=== PATIENT | female | born 1975 | race Caucasian/White ===

== ENCOUNTER 2016-05-29 11:35 | Emergency (ER) | payer OTHER ==
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
[2016-05-29] MEDS ORDERED: ACETAMINOPHEN 325 MG TABLET PO ONE (12:07)
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
[2016-05-29] MEDS ORDERED: CYCLOBENZAPRINE HCL 10 MG TABLET PO ONE (13:42)
[2016-05-29 14:11] VITALS: BP 108/65
== END 2016-05-29 14:10 | disposition home or self-care (01) ==
LOC: ER 11:35
DX: S16.1XXA Strain of muscle, fascia and tendon at neck level, initial encounter (principal); M50.30 Other cervical disc degeneration, unspecified cervical region; M62.838 Other muscle spasm; M25.511 Pain in right shoulder; F17.200 Nicotine dependence, unspecified, uncomplicated; V49.50XA Passenger injured in collision with unspecified motor vehicles in traffic accident, initial encounter; E11.9 Type 2 diabetes mellitus without complications; Z90.49 Acquired absence of other specified parts of digestive tract
CPT/HCPCS: 72050; 99283

== ENCOUNTER 2016-06-03 10:12 | Emergency (ER) | payer OTHER ==
[2016-06-03 10:16] VITALS: BP 98/79
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
== END 2016-06-03 11:41 | disposition home or self-care (01) ==
LOC: ER 10:12
DX: S46.811A Strain of other muscles, fascia and tendons at shoulder and upper arm level, right arm, initial encounter (principal); R22.0 Localized swelling, mass and lump, head; M25.511 Pain in right shoulder; M54.2 Cervicalgia; F17.200 Nicotine dependence, unspecified, uncomplicated; V87.7XXA Person injured in collision between other specified motor vehicles (traffic), initial encounter
CPT/HCPCS: 99283

== ENCOUNTER 2016-08-24 10:36 | Inpatient (IN) | payer OTHER ==
[2016-08-24] MEDS ORDERED: NORMAL SALINE 1000 ML 1,000 ML IV ONE ×2 (10:48→11:00)
[2016-08-24] MEDS ORDERED: ONDANSETRON HCL INJ/PF 4 MG/2 ML SDV IV ONE (11:05)
--- NOTE | 2016-08-24 11:05 | ER Document Report ---
ED Blood Sugar Problem - General Chief Complaint: General Weakness Stated Complaint: WEAKNESS Time Seen by Provider: 08/24/16 10:46 Mode of Arrival: Medic Information source: Patient Notes: A 41-year-old diabetic patient who presents to the ER via EMS today for generalized weakness. Since yesterday, vomiting at least 10 times since this morning. She has not had her insulin in 3 days because she buys it over-the- counter and ran out, did not have any money to buy more. She denies any fever, chills, diarrhea, pain anywhere TRAVEL OUTSIDE OF THE [place] IN LAST 30 DAYS: No - Related Data Allergies/Adverse Reactions: No Known Allergies Allergy (Verified 06/03/16 10:20) Past Medical History - General Information source: Patient - Social History Smoking Status: Current Every Day Smoker Family History: None, COPD, DM - Past Medical History Cardiac Medical History: Denies: Hx Atrial Fibrillation, Hx Congestive Heart Failure, Hx Coronary Artery Disease, Hx DVT, Hx Heart Attack, Hx Hypercholesterolemia, Hx Hypertension, Hx Peripheral Vascular Disease, Hx Pulmonary Embolism, Hx Heart Murmur Pulmonary Medical History: Denies: Hx Asthma, Hx Bronchitis, Hx COPD, Hx Pneumonia, Hx Intubation, Hx Respiratory Failure, Hx Sleep Apnea, Hx Tuberculosis Neurological Medical History: Denies: Hx Migraine, Hx Seizures Endocrine Medical History: Reports: Hx Diabetes Mellitus Type 1, Hx Diabetes Mellitus Type 2. Denies: Hx Hyperthyroidism, Hx Hypothyroidism Renal/ Medical History: Denies: Hx End Stage Renal Disease, Hx Peritoneal Dialysis Malignancy Medical History: Denies: Hx Bone Cancer, Hx Brain Cancer, Hx Breast Cancer, Hx Cervical Cancer, Hx Colorectal Cancer, Hx Leukemia, Hx Liver Cancer, Hx Lung Cancer, Hx Lymphoma, Hx Ovarian Cancer, Hx Pancreatic Cancer, Hx Renal ( Kidney) Cancer, Hx Skin Cancer GI Medical History: Denies: Hx Cirrhosis, Hx Crohn's Disease, Hx Diverticulitis , Hx Gastroesophageal Reflux Disease, Hx Hepatitis, Hx Hiatal Hernia, Hx Ulcerative Colitis Musculoskeltal Medical History: Denies Hx Arthritis, Denies Hx Fibromyalgia, Denies Hx Gout Skin Medical History: Denies Hx Eczema, Reports Hx MRSA, Denies Hx Psoriasis Psychiatric Medical History: Denies: Hx Depression Traumatic Medical History: Denies: Hx Gunshot Wound, Hx Pneumothorax, Hx Traumatic Brain Injury Infectious Medical History: Denies: Hx Hepatitis Past Surgical History: Reports: Hx Section, Hx Cholecystectomy - Immunizations Immunizations up to date: No Hx Diphtheria, Pertussis, Tetanus Vaccination: Yes Hx Pneumococcal Vaccination: 02/13/15 Review of Systems - Review of Systems Constitutional: See HPI EENT: No symptoms reported Cardiovascular: No symptoms reported Respiratory: No symptoms reported Gastrointestinal: See HPI Genitourinary: No symptoms reported Female Genitourinary: No symptoms reported Musculoskeletal: No symptoms reported Skin: No symptoms reported Hematologic/Lymphatic: No symptoms reported Neurological/Psychological: No symptoms reported Physical Exam - Vital signs Vitals: Resp Pulse Ox 27 H 100 08/24/16 10:53 08/24/16 10:53 - Notes Notes: PHYSICAL EXAMINATION: GENERAL: Actively vomiting, in moderate acute distress. HEAD: Atraumatic, normocephalic. EYES: Pupils equal round and reactive to light, extraocular movements intact, sclera anicteric, conjunctiva are normal. NECK: Normal range of motion, supple without lymphadenopathy LUNGS: CTAB and equal. No wheezes rales or rhonchi. HEART: Regular rate and rhythm without murmurs ABDOMEN: Soft, no tenderness. No guarding, no rebound EXTREMITIES: Normal range of motion, no pitting edema. No cyanosis. SKIN: Warm, Dry, normal turgor, no rashes or lesions noted Course - Re-evaluation Re-evalutation: 08/24/16 12:21 patient's white blood cell count is 26.5, bicarbonate less than 5, anion gap is not able to be calculated, osmolality is high, serum glucose of 644, patient is in DKA. Dr. Nj, hospitalist agreed to admit at this time. Patient has received multiple medications for nausea and vomiting but is still actively vomiting. Bicarb was ordered, IV fluids are running. pH is 7.1. - Vital Signs Vital signs: Temp Pulse Resp BP Pulse Ox 26 H 131/77 H 100 08/24/16 12:00 08/24/16 10:54 08/24/16 12:00 - Laboratory Result Diagrams: 08/24/16 11:25 08/24/16 11:25 Laboratory results interpreted by me: 08/24/16 08/24/16 08/24/16 11:25 11:25 11:25 WBC 26.5 H Hct 50.4 H MCHC 30.8 L Plt Count 519 H Seg Neuts % (Manual) 87 H Lymphocytes % (Manual) 5 L Abs Neuts (Manual) 23.9 H VBG pH VBG pCO2 VBG HCO3 Potassium 5.1 H Carbon Dioxide < 5 L* Glucose 644 H* Serum Osmolality 327 H Direct Bilirubin 0.5 H Alkaline Phosphatase 154 H Lipase 21.6 L Urine Glucose (UA) Urine Ketones 08/24/16 08/24/16 11:25 11:45 WBC Hct MCHC Plt Count Seg Neuts % (Manual) Lymphocytes % (Manual) Abs Neuts (Manual) VBG pH 7.11 L* VBG pCO2 23.0 L VBG HCO3 7.1 L Potassium Carbon Dioxide Glucose Serum Osmolality Direct Bilirubin Alkaline Phosphatase Lipase Urine Glucose (UA) >=500 H Urine Ketones 80 H Critical Care Note - Critical Care Note Total time excluding time spent on procedures (mins): 35 - 35 minutes spent in critical care time with patient, consulted with attending, speaking with family , placing orders and evaluating tests and labs. Discharge - Discharge Clinical Impression: DKA (diabetic ketoacidoses) Qualifiers: Diabetes mellitus type: other specified (including ARSEN) Diabetes mellitus complication detail: without coma Qualified Code(s): E13.10 - Other specified diabetes mellitus with ketoacidosis without coma Condition: Fair Disposition: ADMITTED INPATIENT Admitting Provider: Hospitalist Unit Admitted: [facility]
[2016-08-24] MEDS ORDERED: ONDANSETRON HCL INJ/PF 4 MG/2 ML SDV ONE (11:07)
[2016-08-24 11:34] LABS: HEMATOCRIT 50.4 % (36.0-47.0); HEMOGLOBIN 15.5 g/dL (12.0-15.5); HGB HCT DIFFERENCE -3.9; MEAN CORPUSCULAR HGB CONC 30.8 g/dL (32.0-36.0); MEAN CORPUSCULAR VOLUME 97 fl (80-97); RED BLOOD COUNT 5.18 10^6/uL (3.72-5.28); WHITE BLOOD COUNT 26.5 10^3/uL (4.0-10.5)
[2016-08-24 11:45] LABS: APPEARANCE,URINE SLIGHTLY-CLOUDY; BILIRUBIN,URINE NEGATIVE (NEGATIVE); GLUCOSE, URINE >=500 mg/dL (NEGATIVE); KETONES,URINE 80 mg/dL (NEGATIVE); LEUKOCYTE ESTERASE,URINE NEGATIVE (NEGATIVE); NITRITE,URINE NEGATIVE (NEGATIVE); PROTEIN,URINE NEGATIVE (NEGATIVE); URINE SPECIFIC GRAVITY 1.029; UROBILINOGEN,URINE NEGATIVE mg/dL (<2.0)
[2016-08-24] MEDS ORDERED: PROMETHAZINE HCL INJ 25 MG/1 ML VIAL IM ONE (11:45)
[2016-08-24 11:48] LABS: BAND NEUTROPHILS % (MANUAL) 3 % (3-5); BASOPHILS % (MANUAL) 0 % (0-2); EOSINOPHILS % (MANUAL) 0 % (0-6); LYMPHOCYTES % (MANUAL) 5 % (13-45); TOTAL CELLS COUNTED 100
[2016-08-24 11:49] LABS: ALANINE AMINOTRANSFERASE 37 U/L (9-52); ALBUMIN 4.6 g/dL (3.5-5.0); ALKALINE PHOSPHATASE 154 U/L (38-126); ASPARTATE AMINO TRANSFERASE 22 U/L (14-36); BILIRUBIN,DIRECT 0.5 mg/dL (0.0-0.4); BILIRUBIN,TOTAL 0.9 mg/dL (0.2-1.3); BLOOD UREA NITROGEN 14 mg/dL (7-20); CHLORIDE 99 mmol/L (98-107); CREATININE RESULT 0.79 mg/dL (0.52-1.25); LIPASE 21.6 U/L (23-300); SODIUM 138.7 mmol/L (137-145)
[2016-08-24 11:50] LABS: POTASSIUM 5.1 mmol/L (3.6-5.0)
[2016-08-24 11:58] LABS: GLUCOSE 644 mg/dL (75-110)
[2016-08-24 11:59] LABS: CARBON DIOXIDE < 5 mmol/L (22-30)
[2016-08-24] MEDS ORDERED: INSULIN REG, HUMAN 100 UNIT/ML 3 ML VIAL (PYX) IV ONE (12:04)
[2016-08-24 12:12] LABS: VENOUS BLOOD BASE EXCESS -20.6 mmol/L; VENOUS BLOOD HCO3 7.1 mmol/L (20-32)
[2016-08-24] MEDS ORDERED: SODIUM BICARBONATE 8.4% INJ 50 MEQ/50 ML DISP.SYRIN IV ONE ×3 (12:12→19:30)
[2016-08-24 12:14] LABS: VENOUS BLOOD PH 7.11 (7.30-7.42)
[2016-08-24] MEDS ORDERED: PROMETHAZINE HCL INJ 50 MG/1 ML VIAL IM ONE (12:15)
[2016-08-24] MEDS ORDERED: IPRATROPIUM/ALBUTEROL 0.5-2.5 MG/3 ML AMPUL NEB PRN (12:42)
[2016-08-24] MEDS ORDERED: ACETAMINOPHEN 650 MG SUPP.RECT PR PRN (12:42)
[2016-08-24] MEDS ORDERED: NORMAL SALINE 1000 ML 1,000 ML IV PRN (12:42)
[2016-08-24] MEDS ORDERED: DEXTROSE 50%-WATER 25 GM/50 ML DISP.SYRIN IV PRN ×2 (12:42)
[2016-08-24] MEDS ORDERED: DEXTROSE 40% GEL 15 GM TUBE PO PRN ×2 (12:42)
[2016-08-24] MEDS ORDERED: PROMETHAZINE HCL 25 MG SUPP.RECT PR PRN (12:42)
[2016-08-24] MEDS ORDERED: ONDANSETRON HCL INJ/PF 4 MG/2 ML SDV IV PRN (12:42)
[2016-08-24] MEDS ORDERED: GLUCAGON,HUMAN RECOMB 1 MG INJ SUBCUT PRN (12:42)
[2016-08-24] MEDS ORDERED: NORMAL SALINE 100 ML with INSULIN REGULAR, HUMAN 100 UNIT IV PRN ×2 (12:46)
--- NOTE | 2016-08-24 13:08 | PDOC H&P ---
History of Present Illness Admission Date/PCP: 08/24/16 12:39 No PCP History of Present Illness: CAMMIE ROBLES is a 41 year old female with a long history of IDDM who presented to the emergency department with nausea, vomiting, abdominal pain and was found to have DKA. Patient reports having no primary care physician and has been buying her insulin over the counter. She normally takes 30 units of 70/30 twice daily. Patient denies any antecedent illness, cough, rhinorrhea, sore throat, diarrhea, sick contacts. Patient has been out of her insulin for a little more than two days. Patient reports her only home medication as 70/30. 30 units bid. Past Medical History Cardiac Medical History: Denies: Atrial Fibrillation, Congestive Heart Failure, Coronary Artery Disease, DVT, Myocardial Infarction, Hyperlipidema, Hypertension, Peripheral Vascular Disease, Pulmonary Embolism, Heart Murmur Pulmonary Medical History: Denies: Asthma, Bronchitis, Chronic Obstructive Pulmonary Disease (COPD), Intubation, Pneumonia, Respiratory Failure, Sleep Apnea, Tuberculosis Neurological Medical History: Denies: Migraine, Seizures Endocrine Medical History: Reports: Diabetes Mellitus Type 1, Diabetes Mellitus Type 2 Denies: Hyperthyroidism, Hypothyroidism Renal/ Medical History: Denies: End Stage Renal Disease Malignancy Medical History: Denies: Bone Cancer, Brain Cancer, Breast Cancer, Cervical Cancer, Colorectal Cancer, Leukemia, Liver Cancer, Lung Cancer, Lymphoma, Ovarian Cancer , Pancreatic Cancer, Renal (Kidney) Cancer, Skin Cancer GI Medical History: Denies: Cirrhosis, Crohn's Disease, Diverticulitis, Gastroesophageal Reflux Disease, Hepatitis, Hiatal Hernia, Ulcerative Colitis Musculoskeltal Medical History: Denies: Arthritis, Fibromyalgia, Gout Skin Medical History: Denies: Eczema, Psoriasis Psychiatric Medical History: Denies: Depression Traumatic Medical History: Denies: Gunshot Wound, Pneumothorax, Traumatic Brain Injury Past Surgical History Past Surgical History: Reports: Section, Cholecystectomy, Tubal Ligation Social History Smoking Status: Current Every Day Smoker Cigarettes Packs Per Day: 1 Frequency of Alcohol Use: None Hx Recreational Drug Use: No Drugs: None Hx Prescription Drug Abuse: No - Advance Directive Resuscitation Status: Full Code Surrogate healthcare decision maker:: Ciara Ricener, friend, surrogate decision maker Family History Family History: COPD, DM Parental Family History Reviewed: Yes Children Family History Reviewed: Yes Sibling(s) Family History Reviewed.: Yes Medication/Allergy Home Medications: Insulin NPH Hum/Reg Insulin Hm [Novolin 70-30 100 Unit/ml Vial] 30 unit SQ BID 08/24/16 Allergies/Adverse Reactions: No Known Allergies Allergy (Verified 06/03/16 10:20) Review of Systems Constitutional: ABSENT: chills, fever(s), headache(s), weight gain, weight loss Eyes: ABSENT: visual disturbances Ears: ABSENT: hearing changes Nose, Mouth, and Throat: ABSENT: headache(s), mouth pain, sore throat Cardiovascular: ABSENT: chest pain, dyspnea on exertion, edema, orthropnea, palpitations Respiratory: ABSENT: cough, hemoptysis Gastrointestinal: PRESENT: abdominal pain, nausea, vomiting. ABSENT: constipation, diarrhea, hematemesis, hematochezia Genitourinary: ABSENT: dysuria, hematuria Musculoskeletal: ABSENT: joint swelling Integumentary: ABSENT: rash, wounds Neurological: ABSENT: abnormal gait, abnormal speech, confusion, dizziness, focal weakness, syncope Psychiatric: ABSENT: anxiety, depression, homidical ideation, suicidal ideation Endocrine: PRESENT: polyuria. ABSENT: cold intolerance, heat intolerance, polydipsia, polyphagia Hematologic/Lymphatic: ABSENT: easy bleeding, easy bruising Physical Exam Vital Signs: Temp Pulse Resp BP Pulse Ox 26 H 131/77 H 100 08/24/16 12:00 08/24/16 10:54 08/24/16 12:00 General appearance: PRESENT: obese, severe distress, well-developed, well- nourished Head exam: PRESENT: atraumatic, normocephalic Eye exam: PRESENT: conjunctival injection, conjunctiva pink, EOMI, PERRLA. ABSENT: scleral icterus Ear exam: PRESENT: normal external ear exam Mouth exam: PRESENT: dry mucosa, tongue midline Neck exam: ABSENT: JVD, lymphadenopathy, thyromegaly, tracheal deviation Respiratory exam: PRESENT: accessory muscle use, clear to auscultation purvi, symmetrical, tachypnea, unlabored. ABSENT: crackles, rales, retraction, rhonchi , wheezes Cardiovascular exam: PRESENT: RRR, +S1, +S2, tachycardia. ABSENT: diastolic murmur, rubs, systolic murmur Pulses: PRESENT: normal dorsalis pedis pul Vascular exam: PRESENT: normal capillary refill GI/Abdominal exam: PRESENT: normal bowel sounds, soft. ABSENT: distended, firm , guarding, mass, Cee's sign, organolmegaly, rebound, tenderness Rectal exam: PRESENT: deferred Extremities exam: PRESENT: full ROM. ABSENT: calf tenderness, clubbing, pedal edema Neurological exam: PRESENT: alert, awake, oriented to person, oriented to place , oriented to time, oriented to situation, CN II-XII grossly intact. ABSENT: motor sensory deficit Psychiatric exam: PRESENT: appropriate affect, normal mood. ABSENT: homicidal ideation, suicidal ideation Skin exam: PRESENT: dry, intact, warm. ABSENT: cyanosis, rash Results Laboratory Results: 08/24/16 08/24/16 08/24/16 11:25 11:25 11:25 WBC 26.5 H Hgb 15.5 Hct 50.4 H Plt Count 519 H VBG pH VBG pCO2 VBG HCO3 Sodium 138.7 Potassium 5.1 H Chloride 99 Carbon Dioxide < 5 L* BUN 14 Creatinine 0.79 Glucose 644 H* Serum Osmolality 327 H Calcium 10.0 Total Bilirubin 0.9 Direct Bilirubin 0.5 H AST 22 ALT 37 Alkaline Phosphatase 154 H Creatine Kinase Total Protein 8.0 Lipase 21.6 L Ur Specific [place] Urine Glucose (UA) Urine Ketones Urine WBC (Auto) Squamous Epi Cells Auto 08/24/16 08/24/16 08/24/16 11:25 11:30 11:45 WBC Hgb Hct Plt Count VBG pH 7.11 L* VBG pCO2 23.0 L VBG HCO3 7.1 L Sodium Potassium Chloride Carbon Dioxide BUN Creatinine Glucose Serum Osmolality Calcium Total Bilirubin Direct Bilirubin AST ALT Alkaline Phosphatase Creatine Kinase 55 Total Protein Lipase Ur Specific [place] 1.029 Urine Glucose (UA) >=500 H Urine Ketones 80 H Urine WBC (Auto) 1 Squamous Epi Cells Auto 2 Assessment & Plan - Diagnosis (1) DKA (diabetic ketoacidoses) Qualifiers: Diabetes mellitus type: type 1 Diabetes mellitus complication detail: without coma Qualified Code(s): E10.10 - Type 1 diabetes mellitus with ketoacidosis without coma Is this a current diagnosis for this admission?: YesPlan: Patient with DM type I for the last 21 years. Will check HgbA1c. Monitor cardiac enzymes. Admit patient to IMCU. Monitor on telemery. Initiate insulin ggt at 8units/hr. Q4H BMPs Q1H accuchecks Give additional 3L bolus. Then run NS @300mL/hr for 2 hours and then down to 250mL/hr. Consult discharge planning for help with medications. (2) Tobacco abuse Is this a current diagnosis for this admission?: YesPlan: Patient has been counseled on cessation and given nicotine patch. (3) SIRS (systemic inflammatory response syndrome) Is this a current diagnosis for this admission?: YesPlan: Patient meets criteria for SIRS likely secondary to DKA and not from infection. Will monitor for infection. (4) Dehydration Is this a current diagnosis for this admission?: YesPlan: Secondary to #1. - Time Time Spent: 50 to 70 Minutes Medications reviewed and adjusted accordingly: Yes Anticipated discharge: Home Within: within 72 hours - Inpatient Certification Based on my medical assessment, after consideration of the patient's comorbidities, presenting symptoms, or acuity I expect that the services needed warrant INPATIENT care.: Yes I certify that my determination is in accordance with my understanding of Medicare's requirements for reasonable and necessary INPATIENT services [42 CFR 412.3e].: Yes Medical Necessity: Need For IV Fluids, Need For Continuous Telemetry Monitoring , Risk of Complication if Not Cared For in Hospital Post Hospital Care: D/C Director Corporate Communications Documentation, D/C or Transfer Summary
[2016-08-24] MEDS ORDERED: NICOTINE 21 MG/24 HR PATCH.TD24 TD ONE (13:30)
[2016-08-24] MEDS ORDERED: FAMOTIDINE INJ/PF 20 MG/2 ML SDV IV ONE (13:30)
[2016-08-24] MEDS ORDERED: NORMAL SALINE 1000 ML 3,000 ML IV ONE (13:30)
[2016-08-24] MEDS ORDERED: ENOXAPARIN SODIUM INJ 40 MG/0.4 ML DISP.SYRIN SUBCUT ONE (14:00)
[2016-08-24 14:21] LABS: URINE BARBITURATES SCREEN NEGATIVE; URINE METHADONE SCREEN NEGATIVE; URINE PHENCYCLIDINE SCREEN NEGATIVE
[2016-08-24 14:26] LABS: URINE OPIATES LOW UNCONFIRMED POSITIVE
[2016-08-24 16:01] LABS: BLOOD UREA NITROGEN 11 mg/dL (7-20); CALCIUM 7.8 mg/dL (8.4-10.2); CHLORIDE 111 mmol/L (98-107); CREATININE RESULT 0.66 mg/dL (0.52-1.25); GLUCOSE 259 mg/dL (75-110); POTASSIUM 4.2 mmol/L (3.6-5.0); SODIUM 143.1 mmol/L (137-145)
[2016-08-24 16:11] LABS: CARBON DIOXIDE < 5 mmol/L (22-30)
[2016-08-24] MEDS: ACETAMINOPHEN 325 MG TABLET PO PRN ×2 (17:10→21:12)
[2016-08-24] MEDS ORDERED: NORMAL SALINE 1000 ML 2,000 ML IV ONE (18:38)
[2016-08-24] MEDS ORDERED: SODIUM BICARBONATE 8.4% INJ 50 MEQ/50 ML DISP.SYRIN ONE (19:00)
[2016-08-24] MEDS: POTASSI CL 20 MEQ/D5-1/2NS 1L 1,000 ML IV PRN ×2 (19:35→23:41)
[2016-08-24 19:38] LABS: ANION GAP 17 (5-19); BLOOD UREA NITROGEN 8 mg/dL (7-20); CALCIUM 7.4 mg/dL (8.4-10.2); CARBON DIOXIDE 11 mmol/L (22-30); CHLORIDE 113 mmol/L (98-107); CREATININE RESULT 0.58 mg/dL (0.52-1.25); GLUCOSE 84 mg/dL (75-110); POTASSIUM 4.3 mmol/L (3.6-5.0); SODIUM 140.6 mmol/L (137-145)
[2016-08-24] MEDS: FAMOTIDINE INJ/PF 20 MG/2 ML SDV IV SCH (21:12)
[2016-08-24 23:44] LABS: ANION GAP 11 (5-19); BLOOD UREA NITROGEN 5 mg/dL (7-20); CALCIUM 7.1 mg/dL (8.4-10.2); CARBON DIOXIDE 15 mmol/L (22-30); CHLORIDE 113 mmol/L (98-107); CREATININE RESULT 0.52 mg/dL (0.52-1.25); GLUCOSE 135 mg/dL (75-110); POTASSIUM 3.6 mmol/L (3.6-5.0)
[2016-08-25 03:30] LABS: ANION GAP 9 (5-19); BLOOD UREA NITROGEN 4 mg/dL (7-20); CALCIUM 7.1 mg/dL (8.4-10.2); CARBON DIOXIDE 16 mmol/L (22-30); CHLORIDE 115 mmol/L (98-107); CREATININE RESULT 0.46 mg/dL (0.52-1.25); GLUCOSE 141 mg/dL (75-110); POTASSIUM 3.4 mmol/L (3.6-5.0); SODIUM 139.6 mmol/L (137-145)
[2016-08-25] MEDS: POTASSI CL 20 MEQ/D5-1/2NS 1L 1,000 ML IV PRN ×3 (03:37→13:04)
[2016-08-25 07:25] LABS: ABSOLUTE BASOPHILS # (AUTO) 0.1 10^3/uL (0.0-0.2); ABSOLUTE EOSINOPHILS # (AUTO) 0.1 10^3/uL (0.0-0.6); ABSOLUTE MONOCYTES (AUTO) 0.6 10^3/uL (0.1-1.4); ABSOLUTE NEUT (AUTO) 5.2 10^3/uL (1.7-8.2); BASOPHILS % (AUTO) 0.7 % (0-2); EOSINOPHILS % (AUTO) 1.7 % (0-6); HEMATOCRIT 37.5 % (36.0-47.0); LYMPHOCYTES % (AUTO) 24.7 % (13-45); MEAN CORPUSCULAR HEMOGLOBIN 30.7 pg (27.0-33.4); MEAN CORPUSCULAR HGB CONC 33.3 g/dL (32.0-36.0); MONOCYTES % (AUTO) 7.4 % (3-13); RED BLOOD COUNT 4.06 10^6/uL (3.72-5.28); RED CELL DISTRIBUTION WIDTH 13.3 % (11.5-14.0); SEGMENTED NEUTROPHILS % (AUTO) 65.5 % (42-78)
[2016-08-25 07:48] LABS: ANION GAP 6 (5-19); BLOOD UREA NITROGEN 3 mg/dL (7-20); CALCIUM 7.2 mg/dL (8.4-10.2); CARBON DIOXIDE 18 mmol/L (22-30); CHLORIDE 113 mmol/L (98-107); CHOLESTEROL 112.92 mg/dL (0-200); CREATININE RESULT 0.44 mg/dL (0.52-1.25); Direct HDL 27 mg/dL (>40); GLUCOSE 104 mg/dL (75-110); MAGNESIUM 1.4 mg/dL (1.6-2.3); POTASSIUM 3.4 mmol/L (3.6-5.0); SODIUM 137.4 mmol/L (137-145); TRIGLYCERIDES 136 mg/dL (<150)
[2016-08-25] MEDS ORDERED: POTASSIUM CHLORIDE 10 MEQ TABLET.SA PO ONE ×2 (08:00→11:28)
[2016-08-25 08:04] LABS: HEMOGLOBIN 12.5 g/dL (12.0-15.5); MEAN CORPUSCULAR VOLUME 92 fl (80-97)
[2016-08-25 08:24] LABS: DIRECT LDL 50 mg/dL (<100)
[2016-08-25] MEDS: FAMOTIDINE INJ/PF 20 MG/2 ML SDV IV SCH ×2 (08:36→21:52)
[2016-08-25] MEDS: NICOTINE 21 MG/24 HR PATCH.TD24 TD SCH (08:36)
[2016-08-25] MEDS: ENOXAPARIN SODIUM INJ 40 MG/0.4 ML DISP.SYRIN SUBCUT SCH (08:39)
--- NOTE | 2016-08-25 09:56 | EKG REPORT ---
SEVERITY:- ABNORMAL ECG - SINUS TACHYCARDIA YARA, CONSIDER BIATRIAL ABNORMALITIES : Confirmed by: Abel Mcnulty 25-Aug-2016 09:54:19
[2016-08-25] MEDS: ACETAMINOPHEN 325 MG TABLET PO PRN (10:20)
[2016-08-25] MEDS ORDERED: INSULIN GLARGINE,HUM.REC.ANLOG 1,000 UNIT/10 ML UNIT SUBCUT ONE (11:32)
[2016-08-25 11:50] LABS: ANION GAP 9 (5-19); BLOOD UREA NITROGEN 2 mg/dL (7-20); CALCIUM 7.4 mg/dL (8.4-10.2); CARBON DIOXIDE 16 mmol/L (22-30); CHLORIDE 111 mmol/L (98-107); CREATININE RESULT 0.43 mg/dL (0.52-1.25); GLUCOSE 174 mg/dL (75-110); POTASSIUM 3.5 mmol/L (3.6-5.0); SODIUM 136.2 mmol/L (137-145)
[2016-08-25] MEDS: MAGNESIUM SULFATE/D5W 100 ML IV SCH ×2 (12:09→13:53)
[2016-08-25] MEDS ORDERED: ONDANSETRON HCL INJ/PF 4 MG/2 ML SDV IV PRN (14:00)
[2016-08-25] MEDS: METRONIDAZOLE 500 MG/NS RTU 100 ML IV SCH ×2 (14:26→21:53)
[2016-08-25] MEDS: INSULIN LISPRO 100 UNIT/ML 3 ML VIAL SUBCUT PRN ×5 (14:30→21:58)
[2016-08-25 16:15] LABS: ANION GAP 8 (5-19); BLOOD UREA NITROGEN 2 mg/dL (7-20); CALCIUM 7.7 mg/dL (8.4-10.2); CARBON DIOXIDE 18 mmol/L (22-30); CHLORIDE 109 mmol/L (98-107); CREATININE RESULT 0.49 mg/dL (0.52-1.25); GLUCOSE 236 mg/dL (75-110); POTASSIUM 3.8 mmol/L (3.6-5.0); SODIUM 135.1 mmol/L (137-145)
[2016-08-25] MEDS ORDERED: DEXTROSE 50%-WATER SYRINGE 25 GM/50 ML DOSE IV PRN (16:38)
[2016-08-25] MEDS ORDERED: GLUCAGON,HUMAN RECOMB 1 MG INJ IM PRN (16:38)
[2016-08-25] MEDS ORDERED: DEXTROSE 50%-WATER SYRINGE 12.5 GM/25 ML DOSE IV PRN (16:38)
[2016-08-25] MEDS ORDERED: DEXTROSE 40% GEL 15 GM TUBE PO PRN (16:38)
[2016-08-25] MEDS ORDERED: DEXTROSE 40% GEL 15 GM TUBE X 2 PO PRN (16:38)
[2016-08-25] MEDS: LACTOBACILLUS ACIDOPHILUS 250 MG TAB PO SCH (17:27)
[2016-08-25] MEDS: DOCUSATE SODIUM 100 MG CAPSULE PO SCH (17:28)
--- NOTE | 2016-08-25 19:58 | PDOC PROGRESS REPORT ---
Subjective Progress Note for:: 08/25/16 Subjective:: Reports she is feeling tired but better. Patient reports that she is having diarrhea every time she urinates. She reports having recently been on antibiotics and Vicodin for a tooth infection which she reports is currently not bothering her. Patient denies chest pain, shortness of breath, further nausea, vomiting, fever , chills. Physical Exam Vital Signs: Temp Pulse Resp BP Pulse Ox 97.8 F 94 20 104/50 L 96 08/25/16 01:12 08/25/16 02:00 08/25/16 01:12 08/25/16 01:12 08/24/16 21:16 Intake & Output 08/24/16 08/25/16 08/26/16 06:59 06:59 06:59 Intake Total 5500 Output Total 1200 Balance 4300 Weight 94.9 kg Exam: GENERAL: awake, alert, oriented x3; nad HEENT: Conjunctiva clear, nonicteric, moist mucous membranes, no JVD, midline trachea, right-sided dialysis catheter RESPIRATORY: ctab CARDIAC: Regular rate and rhythm, no m/r/g ABDOMEN: Soft, nondistended, nontender,hyperactive bowel sounds, no rebound, no guarding EXTREMETIES: No cyanosis, clubbing; 1+ edema NEUROLOGIC: A+Ox3, CN grossly intact SKIN: No rash, wounds Results Laboratory Results: 08/25/16 03:08 08/24/16 08/24/16 08/24/16 14:07 15:18 19:10 Sodium Cancelled 143.1 140.6 Potassium Cancelled 4.2 4.3 Chloride Cancelled 111 H 113 H Carbon Dioxide Cancelled < 5 L* 11 L Anion Gap Cancelled [employer] 17 BUN Cancelled 11 8 Creatinine Cancelled 0.66 0.58 Est GFR ( Amer) Cancelled > 60 > 60 Est GFR (Non-Af Amer) Cancelled > 60 > 60 Glucose Cancelled 259 H 84 Calcium Cancelled 7.8 L 7.4 L 08/24/16 08/25/16 23:25 03:08 Sodium 139.0 139.6 Potassium 3.6 3.4 L Chloride 113 H 115 H Carbon Dioxide 15 L 16 L Anion Gap 11 9 BUN 5 L 4 L Creatinine 0.52 0.46 L Est GFR ( Amer) > 60 > 60 Est GFR (Non-Af Amer) > 60 > 60 Glucose 135 H 141 H Calcium 7.1 L 7.1 L 08/24/16 08/25/16 19:10 01:20 Troponin I < 0.012 < 0.012 Assessment & Plan - Diagnosis (1) DKA (diabetic ketoacidoses) Qualifiers: Diabetes mellitus type: type 1 Diabetes mellitus complication detail: without coma Qualified Code(s): E10.10 - Type 1 diabetes mellitus with ketoacidosis without coma Is this a current diagnosis for this admission?: YesPlan: Patient with DM type I for the last 21 years. HgbA1c 11.8 Admit patient to IMCU. Monitor on telemery. Has been transitioned to Lantus successfully. Patient remains mildly acidotic secondary to intravascular volume depletion from her ongoing diarrhea. (2) Tobacco abuse Is this a current diagnosis for this admission?: YesPlan: Patient has been counseled on cessation and given nicotine patch. (3) Dehydration Is this a current diagnosis for this admission?: YesPlan: Secondary to #1. (4) Sepsis Is this a current diagnosis for this admission?: YesPlan: Patient with sepsis secondary to C. difficile colitis. Place patient on Flagyl. Give Bacid. (5) Clostridium difficile diarrhea Is this a current diagnosis for this admission?: YesPlan: And on Flagyl. She has been advised to wash her hands only with soap and water. She is placed on contact precautions. - Time Time Spent with patient: 25-34 minutes Medications reviewed and adjusted accordingly: Yes Anticipated discharge: Home Within: within 48 hours
[2016-08-25 20:21] LABS: ANION GAP 9 (5-19); CARBON DIOXIDE 18 mmol/L (22-30); CHLORIDE 109 mmol/L (98-107); CREATININE RESULT 0.45 mg/dL (0.52-1.25); GLUCOSE 200 mg/dL (75-110); SODIUM 136.4 mmol/L (137-145)
[2016-08-25 20:25] LABS: BLOOD UREA NITROGEN < 2 mg/dL (7-20)
[2016-08-26] MEDS: ACETAMINOPHEN 325 MG TABLET PO PRN (00:11)
[2016-08-26] MEDS: NORMAL SALINE 1000 ML 1,000 ML IV PRN ×2 (00:11→08:21)
[2016-08-26] MEDS: METRONIDAZOLE 500 MG/NS RTU 100 ML IV SCH ×2 (04:35→09:16)
[2016-08-26 05:35] LABS: HEMATOCRIT 36.5 % (36.0-47.0); HEMOGLOBIN 12.2 g/dL (12.0-15.5); HGB HCT DIFFERENCE 0.1; MEAN CORPUSCULAR HEMOGLOBIN 30.5 pg (27.0-33.4); MEAN CORPUSCULAR HGB CONC 33.4 g/dL (32.0-36.0); MEAN CORPUSCULAR VOLUME 91 fl (80-97); RED BLOOD COUNT 3.99 10^6/uL (3.72-5.28); RED CELL DISTRIBUTION WIDTH 13.5 % (11.5-14.0); WHITE BLOOD COUNT 4.8 10^3/uL (4.0-10.5)
[2016-08-26 05:47] LABS: ANION GAP 7 (5-19); BLOOD UREA NITROGEN 2 mg/dL (7-20); CALCIUM 8.1 mg/dL (8.4-10.2); CARBON DIOXIDE 20 mmol/L (22-30); CHLORIDE 110 mmol/L (98-107); CREATININE RESULT 0.48 mg/dL (0.52-1.25); GLUCOSE 276 mg/dL (75-110); SODIUM 137.1 mmol/L (137-145)
[2016-08-26 06:15] LABS: POTASSIUM 4.1 mmol/L (3.6-5.0)
[2016-08-26 06:21] LABS: ABSOLUTE EOSINOPHILS # (AUTO) 0.1 10^3/uL (0.0-0.6); ABSOLUTE LYMPHOCYTES (AUTO) 1.7 10^3/uL (0.5-4.7); ABSOLUTE MONOCYTES (AUTO) 0.4 10^3/uL (0.1-1.4); ABSOLUTE NEUT (AUTO) 2.7 10^3/uL (1.7-8.2); BASOPHILS % (AUTO) 0.9 % (0-2); EOSINOPHILS % (AUTO) 1.8 % (0-6); LYMPHOCYTES % (AUTO) 34.8 % (13-45); MONOCYTES % (AUTO) 7.3 % (3-13); SEGMENTED NEUTROPHILS % (AUTO) 55.2 % (42-78)
[2016-08-26] MEDS: INSULIN LISPRO 100 UNIT/ML 3 ML VIAL SUBCUT PRN ×2 (08:23→12:02)
[2016-08-26] MEDS: ENOXAPARIN SODIUM INJ 40 MG/0.4 ML DISP.SYRIN SUBCUT SCH (08:23)
[2016-08-26] MEDS: NICOTINE 21 MG/24 HR PATCH.TD24 TD SCH (09:15)
[2016-08-26] MEDS: FAMOTIDINE INJ/PF 20 MG/2 ML SDV IV SCH (09:15)
[2016-08-26] MEDS: LACTOBACILLUS ACIDOPHILUS 250 MG TAB PO SCH (09:16)
[2016-08-26] MEDS: DOCUSATE SODIUM 100 MG CAPSULE PO SCH (09:17)
[2016-08-26] MEDS ORDERED: HUM INSULIN NPH/REG INSULIN HM 100 UNIT/1 ML 3 ML SUBCUT SCH (10:00)
[2016-08-26 12:42] VITALS: BP 104/50
--- NOTE | 2016-08-26 17:12 | PDOC DISCHARGE SUMMARY ---
General - Admit/Disc Date/PCP Admission Date/Primary Care Provider: 08/24/16 12:42 Discharge Date: 08/26/16 - Discharge Diagnosis (1) DKA (diabetic ketoacidoses) Is this a current diagnosis for this admission?: Yes (2) Clostridium difficile diarrhea Is this a current diagnosis for this admission?: Yes (3) Dehydration Is this a current diagnosis for this admission?: Yes (4) Sepsis Is this a current diagnosis for this admission?: Yes (5) Tobacco abuse Is this a current diagnosis for this admission?: Yes - Additional Information Resuscitation Status: Full Code Discharge Diet: Diabetic Discharge Activity: Activity As Tolerated Home Medications: Insulin NPH Hum/Reg Insulin Hm [Novolin 70-30 100 Unit/ml Vial] 30 unit SQ BID # 1 vial 08/26/16 Insulin Regular, Human [Humulin R (Pyxis) Insulin 100 Unit/ml 3Ml] 0 unit SUBCUT .SLD SCALE #1 vial 08/26/16 Metronidazole [Flagyl 500 mg Tablet] 500 mg PO TID #30 tablet 08/26/16 History of Present Illness Patient complains of: Nausea and vomiting History of Present Illness: CAMMIE ROBLES is a 41 year old female with a long history of IDDM who presented to the emergency department with nausea, vomiting, abdominal pain and was found to have DKA. Patient reports having no primary care physician and has been buying her insulin over the counter. She normally takes 30 units of 70/30 twice daily. Patient denies any antecedent illness, cough, rhinorrhea, sore throat, diarrhea, sick contacts. Patient has been out of her insulin for a little more than two days. Hospital Course Hospital Course: Patient was admitted for primarily DKA which was corrected with insulin drip patient was subsequently transitioned back to 70/30 insulin. Patient was also found to have C. difficile colitis and was initially started on IV Flagyl. She will be transitioned to oral Flagyl on discharge. She is symptomatically improved. Physical Exam Vital Signs: Temp Pulse Resp BP Pulse Ox 97.9 F 71 19 104/50 L 100 08/26/16 12:40 08/26/16 12:40 08/26/16 12:40 08/26/16 12:40 08/26/16 12:40 Intake & Output 08/25/16 08/26/16 08/27/16 06:59 06:59 06:59 Intake Total 5500 4166 473 Output Total 1200 4500 1200 Balance 3362 -197 -189 Weight 94.9 kg 93.6 kg Results Laboratory Results: 08/26/16 04:14 08/26/16 04:14 08/25/16 08/26/16 08/26/16 19:27 04:14 04:14 WBC 4.8 RBC 3.99 Hgb 12.2 Hct 36.5 MCV 91 MCH 30.5 MCHC 33.4 RDW 13.5 Plt Count 232 Seg Neutrophils % 55.2 Lymphocytes % 34.8 Monocytes % 7.3 Eosinophils % 1.8 Basophils % 0.9 Absolute Neutrophils 2.7 Absolute Lymphocytes 1.7 Absolute Monocytes 0.4 Absolute Eosinophils 0.1 Absolute Basophils 0.0 Sodium 136.4 L 137.1 Potassium 4.0 4.1 Chloride 109 H 110 H Carbon Dioxide 18 L 20 L Anion Gap 9 7 BUN < 2 L 2 L Creatinine 0.45 L 0.48 L Est GFR ( Amer) > 60 > 60 Est GFR (Non-Af Amer) > 60 > 60 Glucose 200 H 276 H Calcium 8.0 L 8.1 L 08/24/16 15:15 Nasophary (Mrsa Only) MRSA Surveillance Culture - Final NO MRSA RECOVERED 08/24/16 08/25/16 19:10 01:20 Troponin I < 0.012 < 0.012 Qualifiers PATEINT BEING DISCHARGED WITH ANY OF THE FOLLOWING DIAGNOSIS?: No Plan Time Spent: Less than 30 Minutes
== END 2016-08-26 13:08 | disposition home or self-care (01) | DRG 637 ==
LOC: ER 10:36 → EH 12:39 → UNDOADMIN 12:39 → EH 12:42 → 3N 14:49
PROVIDERS: ADMIT Family Medicine; ATTEND Family Medicine
PROC: 3E0F73Z Introduction of Anti-inflammatory into Respiratory Tract, Via Natural or Artificial Opening (ICD-10-PCS; principal; 2016-08-24)
DX: E10.10 Type 1 diabetes mellitus with ketoacidosis without coma (principal); A41.9 Sepsis, unspecified organism; A04.7 Enterocolitis due to Clostridium difficile; F17.210 Nicotine dependence, cigarettes, uncomplicated; E66.9 Obesity, unspecified; Z68.34 Body mass index [BMI] 34.0-34.9, adult; E86.0 Dehydration; Z79.4 Long term (current) use of insulin; Z90.49 Acquired absence of other specified parts of digestive tract; Z83.6 Family history of other diseases of the respiratory system; Z83.3 Family history of diabetes mellitus
CPT/HCPCS: 36415; 80048; 80053; 80061; 80307; 81001; 81025; 82272; 82550; 82803; 82962; 83036; 83690; 83735; 83930; 84443; 84484; 85025; 87045; 87086; 87205; 87493; 89055; 93005; 93010; 94640; 96372; 96374; 99291; J1650; J1815; J2405; J2550; J3475; J3480; J3490; J7030; J7620; S0028

== ENCOUNTER 2016-10-06 06:22 | Emergency (ER) | payer SELFPAY ==
--- NOTE | 2016-10-06 07:07 | ER Document Report ---
ED GI/ - General Mode of Arrival: Ambulatory Information source: Patient TRAVEL OUTSIDE OF THE [place] IN LAST 30 DAYS: No - HPI Patient complains to provider of: Other - painful urination Associated symptoms: Other - See above <OTTNOIEL CREWS - Last Filed: 10/06/16 07:02> <MIKEL SCHREIBER - Last Filed: 10/06/16 10:07> - General Chief Complaint: Pain With Urination Stated Complaint: PAINFUL URINATION Notes: Patient is a 41 year old female, with a past medical history including diabetes , who presents to the emergency department complaining of painful urination onset 5 days ago. Patient reports that the pain is in her lower abdomen when she urinates and that she also has increasing frequency but with no change in urine output. Patient states that 3 days ago her right flank began to hurt accompanied by abdominal pain. Patient admits that her blood sugar levels have been in the upper 200s recently. Patient also complains of an episode of diarrhea this morning. Patient denies burning with urination, fever, and vomiting. Patient has no PCP. (OTTONIEL CREWS) - Related Data Allergies/Adverse Reactions: No Known Allergies Allergy (Verified 10/06/16 06:28) Past Medical History - General Information source: Patient - Social History Smoking Status: Current Every Day Smoker Cigarette use (# per day): Yes - 1 ppd Family History: None, Reviewed & Not Pertinent, COPD, DM Endocrine Medical History: Reports: Hx Diabetes Mellitus Type 1, Hx Diabetes Mellitus Type 2 Skin Medical History: Reports Hx MRSA Past Surgical History: Reports: Hx Section, Hx Cholecystectomy, Hx Tubal Ligation - Immunizations Immunizations up to date: No Hx Diphtheria, Pertussis, Tetanus Vaccination: Yes Hx Pneumococcal Vaccination: 02/13/15 <OTTONIEL CREWS - Last Filed: 10/06/16 07:02> Review of Systems - Review of Systems Constitutional: denies: Fever EENT: No symptoms reported Cardiovascular: No symptoms reported Respiratory: No symptoms reported Gastrointestinal: See HPI, Abdominal pain, Diarrhea. denies: Vomiting Genitourinary: See HPI, Dysuria, Frequency, Flank pain. denies: Burning Female Genitourinary: No symptoms reported Musculoskeletal: No symptoms reported Skin: No symptoms reported Hematologic/Lymphatic: No symptoms reported Neurological/Psychological: No symptoms reported -: Yes All other systems reviewed and negative <OTTONIEL CREWS - Last Filed: 10/06/16 07:02> Physical Exam - Vital signs Interpretation: Normal - General General appearance: Alert, Other - Appears uncomfortable - HEENT Head: Normocephalic, Atraumatic - Respiratory Respiratory status: No respiratory distress Chest status: Nontender Breath sounds: Normal Chest palpation: Normal - Cardiovascular Rhythm: Regular Heart sounds: Normal auscultation Murmur: No - Abdominal Inspection: Normal Distension: No distension Bowel sounds: Normal Tenderness: Tender - Right lower quadrant tender to palpation Organomegaly: No organomegaly - Back Back: Tender - Tenderness to palpation of right lumbar muscles. No: CVA tenderness - Extremities General upper extremity: Normal inspection General lower extremity: Normal inspection - Neurological Neuro grossly intact: Yes Cognition: Normal Orientation: AAOx4 [place] Coma Scale Eye Opening: Spontaneous [place] Coma Scale Verbal: Oriented [place] Coma Scale Motor: Obeys Commands [place] Coma Scale Total: 15 Speech: Normal - Psychological Associated symptoms: Normal affect, Normal mood - Skin Skin Moisture: Moist - Skin warm and moist <OTTONIEL CREWS - Last Filed: 10/06/16 07:02> Course - Laboratory Result Diagrams: 10/06/16 08:01 10/06/16 08:01 <MIKEL SCHREIBER - Last Filed: 10/06/16 10:07> - Vital Signs Vital signs: Temp Pulse Resp BP Pulse Ox 98.0 F 100 21 H 134/69 H 96 10/06/16 06:28 10/06/16 06:28 10/06/16 06:28 10/06/16 06:28 10/06/16 06:28 - Laboratory Laboratory results interpreted by me: 10/06/16 10/06/16 07:38 08:01 Sodium 136.5 L Glucose 312 H Urine Protein 100 H Urine Glucose (UA) >=500 H Urine Ketones 20 H Urine Blood LARGE H Urine Nitrite POSITIVE H Ur Leukocyte Esterase LARGE H Discharge <OTTONIEL CREWS - Last Filed: 10/06/16 07:02> <MIKEL SCHREIBER - Last Filed: 10/06/16 10:07> - Discharge Clinical Impression: Hyperglycemia due to type 1 diabetes mellitus Low back pain Qualifiers: Chronicity: acute Back pain laterality: right Sciatica presence: without sciatica Qualified Code(s): M54.5 - Low back pain Urinary tract infection Qualifiers: Urinary tract infection type: site unspecified Hematuria presence: with hematuria Qualified Code(s): N39.0 - Urinary tract infection, site not specified ; R31.9 - Hematuria, unspecified Condition: Stable Disposition: HOME, SELF-CARE Additional Instructions: Urinary Tract Infection: Your evaluation indicates that you have a urinary tract infection. This is due to germs growing in the bladder. This is a common problem. This infection usually responds quickly to antibiotics. Your antibiotic should be taken exactly as prescribed. Drink plenty of fluids -- three to four quarts a day. Occasionally, a bladder anesthetic will be prescribed to help stop the feeling of urgency until the antibiotic has a chance to clear the infection. This may cause your urine to be dark orange. Certain urine infections require a culture. If the doctor obtained a culture, the results will be back in two days. You should call to see if a change in treatment is needed. A repeat urinalysis after you finish treatment is often recommended. The physician will let you know if further testing is required. Call the doctor if you develop fever, chills, flank pain, inability to urinate, or blood in the urine. Low Back Pain: Three out of every four people will have an episode of disabling back pain during their lifetime. Most commonly the pain is due to straining of the muscles and ligaments in the low back. Usual treatment includes: (1) Rest on a firm surface. Avoid lying on your stomach. (2) Ice pack the painful area. After a few days, gentle heat may be used intermittently to relax the area, or ice packs can be continued. (3) Medication may be needed -- muscle relaxers and antiinflammatory medicines are commonly used. (4) As the back improves, exercises are prescribed to strengthen the back and abdominal muscles. Your doctor will advise you on the proper care for your back at each stage in your recovery. You may be better in a few days -- or healing may take several weeks. If new symptoms of a "herniated disc" (radiation of pain, numbness, or tingling down the back of the leg or weakness in the leg) occur, you should be re-examined. Further testing may be necessary. Take the medications as prescribed. Rest. Try moist heat to the painful back muscles. Drink plenty of fluids. Check your sugars and take insulin accordingly. Follow-up with a local medical doctor if not improving. RETURN TO THE EMERGENCY ROOM IF ANY NEW OR WORSENING SYMPTOMS. Prescriptions: Cephalexin Monohydrate [Keflex 500 mg Capsule] 500 mg PO TID #15 capsule Cyclobenzaprine HCl [Flexeril 5 mg Tablet] 5 mg PO TID PRN #15 tablet PRN Reason: Hydrocodone/Acetaminophen [Hydrocodon-Acetaminophen 5-325] 1 each PO Q4 PRN #15 tablet PRN Reason: For Back Pain Scribe Attestation: 10/06/16 08:39 I personally performed the services described in the documentation, reviewed and edited the documentation which was dictated to the scribe in my presence, and it accurately records my words and actions. (MIKEL SCHREIBER) Scribe Documentation - Scribe Written by Parviz:: parviz Bone, 10/06/16, 710 acting as scribe for :: Ashlee <OTTONIEL CREWS - Last Filed: 10/06/16 07:02>
[2016-10-06 08:00] LABS: APPEARANCE,URINE CLOUDY; BILIRUBIN,URINE NEGATIVE (NEGATIVE); GLUCOSE, URINE >=500 mg/dL (NEGATIVE); KETONES,URINE 20 mg/dL (NEGATIVE); LEUKOCYTE ESTERASE,URINE LARGE (NEGATIVE); NITRITE,URINE POSITIVE (NEGATIVE); PROTEIN,URINE 100 mg/dL (NEGATIVE); UROBILINOGEN,URINE NEGATIVE mg/dL (<2.0)
[2016-10-06 08:10] LABS: ABSOLUTE BASOPHILS # (AUTO) 0.1 10^3/uL (0.0-0.2); ABSOLUTE EOSINOPHILS # (AUTO) 0.3 10^3/uL (0.0-0.6); ABSOLUTE LYMPHOCYTES (AUTO) 1.2 10^3/uL (0.5-4.7); ABSOLUTE MONOCYTES (AUTO) 0.8 10^3/uL (0.1-1.4); EOSINOPHILS % (AUTO) 2.9 % (0-6); HEMATOCRIT 42.2 % (36.0-47.0); HEMOGLOBIN 14.3 g/dL (12.0-15.5); HGB HCT DIFFERENCE 0.7; LYMPHOCYTES % (AUTO) 13.1 % (13-45); MEAN CORPUSCULAR HEMOGLOBIN 31.3 pg (27.0-33.4); MEAN CORPUSCULAR HGB CONC 33.9 g/dL (32.0-36.0); MEAN CORPUSCULAR VOLUME 92 fl (80-97); MONOCYTES % (AUTO) 8.7 % (3-13); RED BLOOD COUNT 4.57 10^6/uL (3.72-5.28); RED CELL DISTRIBUTION WIDTH 13.5 % (11.5-14.0); SEGMENTED NEUTROPHILS % (AUTO) 74.3 % (42-78); WHITE BLOOD COUNT 9.4 10^3/uL (4.0-10.5)
[2016-10-06] MEDS ORDERED: CEFTRIAXONE 1 GM/D5W RTU 50 ML IV ONE (08:14)
[2016-10-06] MEDS ORDERED: NORMAL SALINE 1000 ML 1,000 ML IV ONE (08:14)
[2016-10-06] MEDS ORDERED: KETOROLAC TROMETHAMINE INJ/PF 30 MG/1 ML SDV IV ONE (08:15)
[2016-10-06 08:25] LABS: ALANINE AMINOTRANSFERASE 38 U/L (9-52); ALBUMIN 3.9 g/dL (3.5-5.0); ALKALINE PHOSPHATASE 108 U/L (38-126); ANION GAP 11 (5-19); ASPARTATE AMINO TRANSFERASE 27 U/L (14-36); BILIRUBIN,DIRECT 0.3 mg/dL (0.0-0.4); BILIRUBIN,TOTAL 0.8 mg/dL (0.2-1.3); BLOOD UREA NITROGEN 8 mg/dL (7-20); CALCIUM 9.1 mg/dL (8.4-10.2); CARBON DIOXIDE 25 mmol/L (22-30); CHLORIDE 101 mmol/L (98-107); CREATININE RESULT 0.54 mg/dL (0.52-1.25); GLUCOSE 312 mg/dL (75-110); POTASSIUM 4.3 mmol/L (3.6-5.0); SODIUM 136.5 mmol/L (137-145); TOTAL PROTEIN 7.1 g/dL (6.3-8.2)
[2016-10-06] MEDS ORDERED: HYDROMORPHONE HCL INJ/PF 2 MG/ML AMPULE IV ONE (09:26)
[2016-10-06] MEDS ORDERED: ONDANSETRON HCL INJ/PF 4 MG/2 ML SDV IV ONE (09:26)
[2016-10-06 10:46] VITALS: BP 130/71
== END 2016-10-06 10:46 | disposition home or self-care (01) ==
LOC: ER 06:22
DX: N39.0 Urinary tract infection, site not specified (principal); R31.9 Hematuria, unspecified; E10.65 Type 1 diabetes mellitus with hyperglycemia; M54.5 Low back pain; R19.7 Diarrhea, unspecified; F17.210 Nicotine dependence, cigarettes, uncomplicated; Z86.14 Personal history of Methicillin resistant Staphylococcus aureus infection; Z90.49 Acquired absence of other specified parts of digestive tract; Z98.51 Tubal ligation status
CPT/HCPCS: 99283; 96375; 96365; 36415; 87086; 85025; 87088; 80053; 81001; 87186; J1885; J1170; J2405; J7030; J0696

== ENCOUNTER 2016-10-23 14:41 | Emergency (ER) | payer SELFPAY ==
[2016-10-23 14:59] VITALS: BP 121/67
[2016-10-23] MEDS ORDERED: HYDROCODONE/ACETAMINOPHEN 5-325 MG TABLET PO ONE (15:22)
--- NOTE | 2016-10-23 15:23 | ER Document Report ---
HPI - HPI Patient complains to provider of: wrist injury Onset: Yesterday Onset/Duration: Sudden Quality of pain: Sharp Pain Level: 4 Context: Patient states that she slipped and fell in the bathtub injuring her left wrist yesterday. Patient complains of pain over her distal ulnar area. Associated Symptoms: Other - wrist pain Exacerbated by: Movement Relieved by: Denies Similar symptoms previously: Yes Recently seen / treated by doctor: No - ROS ROS below otherwise negative: Yes Systems Reviewed and Negative: Yes All other systems reviewed and negative - NEURO Neurology: DENIES: Weakness - GASTROINTESTINAL Gastrointestinal: DENIES: Nausea - REPRODUCTIVE Reproductive: DENIES: : - MUSCULOSKELETAL Musculoskeletal: REPORTS: Extremity pain - DERM Skin Color: Normal Past Medical History - General Information source: Patient - Social History Smoking Status: Current Every Day Smoker Frequency of alcohol use: None Drug Abuse: None Occupation: none Family History: None, Reviewed & Not Pertinent, COPD, DM Patient has suicidal ideation: No Patient has homicidal ideation: No Endocrine Medical History: Reports: Hx Diabetes Mellitus Type 1, Hx Diabetes Mellitus Type 2. Denies: Hx Hyperthyroidism, Hx Hypothyroidism Skin Medical History: Denies Hx Eczema, Reports Hx MRSA, Denies Hx Psoriasis Infectious Medical History: Denies: Hx Hepatitis Past Surgical History: Reports: Hx Section, Hx Cholecystectomy, Hx Tubal Ligation - Immunizations Immunizations up to date: No Hx Diphtheria, Pertussis, Tetanus Vaccination: Yes Hx Pneumococcal Vaccination: 02/13/15 Vertical Provider Document - CONSTITUTIONAL Agree With Documented VS: Yes Exam Limitations: No Limitations General Appearance: WD/WN, No Apparent Distress - INFECTION CONTROL TRAVEL OUTSIDE OF THE [place] IN LAST 30 DAYS: No - HEENT HEENT: Atraumatic, Normocephalic - NECK Neck: Normal Inspection, Supple - RESPIRATORY Respiratory: No Respiratory Distress O2 Sat by Pulse Oximetry: 99 - CARDIOVASCULAR Pulses: Normal: Radial - BACK Back: Normal Inspection - MUSCULOSKELETAL/EXTREMETIES Musculoskeletal/Extremeties: MAEW, Tender - Left wrist tenderness over distal ulna, mild ecchymosis, no deformity - NEURO Level of Consciousness: Awake, Alert, Appropriate Motor/Sensory: No Motor Deficit, No Sensory Deficit - DERM Integumentary: Warm, Dry, No Rash Course - Re-evaluation Re-evalutation: 10/23/16 16:30 States that patient eloped from room - Vital Signs Vital signs: Temp Pulse Resp BP Pulse Ox 98.7 F 104 H 20 121/67 99 10/23/16 14:55 10/23/16 14:55 10/23/16 14:55 10/23/16 14:55 10/23/16 14:55 Discharge - Discharge Clinical Impression: Injury of wrist Qualifiers: Encounter type: initial encounter Laterality: left Qualified Code(s): S69.92XA - Unspecified injury of left wrist, hand and finger(s), initial encounter Disposition: ELOPED
== END 2016-10-23 16:04 | disposition left against medical advice (07) ==
LOC: ER 14:41
DX: S69.92XA Unspecified injury of left wrist, hand and finger(s), initial encounter (principal); W18.2XXA Fall in (into) shower or empty bathtub, initial encounter; F17.200 Nicotine dependence, unspecified, uncomplicated; E11.9 Type 2 diabetes mellitus without complications; Z53.20 Procedure and treatment not carried out because of patient's decision for unspecified reasons
CPT/HCPCS: 99281

== ENCOUNTER 2016-11-29 22:59 | Emergency (ER) | payer SELFPAY ==
[2016-11-29] MEDS ORDERED: MORPHINE SULFATE 10 MG/ML INJ IV ONE (23:40)
--- NOTE | 2016-11-29 23:41 | ER Document Report ---
ED GI/ - General Mode of Arrival: Medic Information source: Patient TRAVEL OUTSIDE OF THE [place] IN LAST 30 DAYS: No <JOSEFINA HUNTER - Last Filed: 11/30/16 07:42> <KIKE MARTI - Last Filed: 11/30/16 12:46> - General Chief Complaint: Abdominal Pain Stated Complaint: ABDOMINAL PAIN Time Seen by Provider: 11/29/16 23:29 Notes: 41 yo female diabetic c/o RUQ abdominal pain for a few days, Nausea and vomiting , malaise. No hx pancreatitis, hepatitis, non drinker. No meds that would cause liver problems. Friends told her that she was looking yellow. PMH: 2012 ahmet, LMP-lashonda IUD, BTL bladder sling x 2 , c section. (JOSEFINA HUNTER) - Related Data Allergies/Adverse Reactions: No Known Allergies Allergy (Verified 11/30/16 01:47) Past Medical History - General Information source: Patient - Social History Frequency of alcohol use: None Drug Abuse: Bath salts Family History: Reviewed & Not Pertinent, COPD, DM Endocrine Medical History: Reports: Hx Diabetes Mellitus Type 2 Skin Medical History: Reports Hx MRSA Infectious Medical History: Denies: Hx Hepatitis Past Surgical History: Reports: Hx Section, Hx Cholecystectomy, Hx Tubal Ligation - Immunizations Immunizations up to date: No Hx Diphtheria, Pertussis, Tetanus Vaccination: Yes Hx Pneumococcal Vaccination: 02/13/15 <JOSEFINA HUNTER - Last Filed: 11/30/16 07:42> - Social History Smoking Status: Never Smoker Cigarette use (# per day): No Chew tobacco use (# tins/day): No Smoking Education Provided: No <KIKE MARTI - Last Filed: 11/30/16 12:46> Review of Systems - Review of Systems Constitutional: No symptoms reported EENT: No symptoms reported Cardiovascular: No symptoms reported Respiratory: No symptoms reported Gastrointestinal: No symptoms reported Genitourinary: No symptoms reported Female Genitourinary: No symptoms reported Musculoskeletal: No symptoms reported Skin: No symptoms reported Hematologic/Lymphatic: No symptoms reported Neurological/Psychological: No symptoms reported <JOSEFINA HUNTER - Last Filed: 11/30/16 07:42> Physical Exam - Vital signs Interpretation: Normal - General General appearance: Appears well, Alert - HEENT Head: Normocephalic, Atraumatic Eyes: Scleral icterus Pupils: PERRL Mucous membranes: Dry Pharynx: Normal Neck: Supple. No: Lymphadenopathy - Respiratory Respiratory status: No respiratory distress Chest status: Nontender Breath sounds: Normal Chest palpation: Normal - Cardiovascular Rhythm: Regular Heart sounds: Normal auscultation Murmur: No - Abdominal Inspection: Normal Distension: No distension Bowel sounds: Normal Tenderness: Tender - RUQ Organomegaly: No organomegaly. No: Hepatomegaly - Back Back: Normal, Nontender. No: CVA tenderness - Extremities General upper extremity: Normal inspection, Nontender, Normal color, Normal ROM , Normal temperature General lower extremity: Normal inspection, Nontender, Normal color, Normal ROM , Normal temperature, Normal weight bearing. No: Ba's sign - Neurological Neuro grossly intact: Yes Cognition: Normal Orientation: AAOx4 [place] Coma Scale Eye Opening: Spontaneous [place] Coma Scale Verbal: Oriented [place] Coma Scale Motor: Obeys Commands [place] Coma Scale Total: 15 Speech: Normal Motor strength normal: LUE, RUE, LLE, RLE Sensory: Normal - Psychological Associated symptoms: Normal affect, Normal mood - Skin Skin Temperature: Warm Skin Moisture: Dry Skin Color: Jaundiced <JOSEFINA HUNTER - Last Filed: 11/30/16 07:42> <KIKE MARTI - Last Filed: 11/30/16 12:46> - Vital signs Vitals: Resp Pulse Ox 18 99 11/29/16 23:05 11/29/16 23:05 - General Notes: icteric sclera, faciala jaundice (JOSEFINA HUNTER) Course - Laboratory Result Diagrams: 11/29/16 23:25 11/30/16 06:25 <JOSEFINA HUNTER - Last Filed: 11/30/16 07:42> - Laboratory Result Diagrams: 11/29/16 23:25 11/30/16 06:25 <KIKE MARTI - Last Filed: 11/30/16 12:46> - Re-evaluation Re-evalutation: 11/30/16 02:[address] naylor who states pt needs gastroenterology specialty which we do not have senior telecommunications specialist. Pt wants to go to [facility], dr. sherman will call me back. He thinks the pt should go to facility that has capability to do ERCP which they do not have. 11/30/16 02:22 I called the radiologist back who explained and will put an addendum on the ultrasound report that post cholecystectomy the common bile duct is ectatic and enlarges over time, she was not indicating that there was obstruction. CBD was 7 last year, she is adding addendum that no change. 11/30/16 02:35 11/30/16 03:20 Patient is a self-pay and cannot pay for ambulance transport to [facility]. She called her son who does not have gas money. I canceled the transfer to [facility] even though they have a bed available and Dr. Sherman accepted the patient. I have called [facility] which was the patient's second choice for medical care since they have transport capabilities and am waiting for hospitalist to call me back. 11/30/16 03:45 Dr. Ruddy Howell will accept the pt at [facility] medical tele bed, they will not have transport available until at least 6:30 am. 11/30/16 05:11 [facility] has not called back with room assignment. 11/30/16 06:25 chemistry redrawn. 11/30/16 06:[address] ruano. 11/30/16 07:43 added PT, PTT since they were not ordred last night. pt did not have any bruising or bleeding. (JOSEFINA HUNTER) 11/30/16 12:45 Patient has been evaluated multiple times, was given insulin as needed. Transfer is here today the patient and she is stable at this time (KIKE MARTI) - Vital Signs Vital signs: Temp Pulse Resp BP Pulse Ox 97.7 F 78 16 111/71 96 11/30/16 06:50 11/30/16 07:15 11/30/16 11:00 11/30/16 09:26 11/30/16 11:00 - Laboratory Laboratory results interpreted by me: 11/29/16 11/29/16 11/29/16 23:25 23:25 23:47 RDW 14.4 H Band Neutrophils % 1 L Sodium 132.1 L Carbon Dioxide Creatinine 0.49 L Glucose 454 H* POC Glucose Calcium Magnesium Total Bilirubin 12.4 H Direct Bilirubin 11.0 H AST 1423 H ALT 1283 H Alkaline Phosphatase 934 H Total Protein Albumin 3.3 L Urine Glucose (UA) >=500 H Urine Blood SMALL H Urine Urobilinogen 2.0 H Acetaminophen 11/30/16 11/30/16 11/30/16 01:05 01:05 02:47 RDW Band Neutrophils % Sodium Carbon Dioxide Creatinine Glucose POC Glucose 330 H Calcium Magnesium 1.5 L Total Bilirubin Direct Bilirubin AST ALT Alkaline Phosphatase Total Protein Albumin Urine Glucose (UA) Urine Blood Urine Urobilinogen Acetaminophen < 10 L 11/30/16 11/30/16 11/30/16 06:25 07:38 11:19 RDW Band Neutrophils % Sodium 134.6 L Carbon Dioxide 19 L Creatinine 0.39 L Glucose 240 H POC Glucose 248 H 297 H Calcium 8.1 L Magnesium Total Bilirubin 11.3 H Direct Bilirubin 9.9 H AST 1455 H ALT 1187 H Alkaline Phosphatase 840 H Total Protein 5.6 L Albumin 2.9 L Urine Glucose (UA) Urine Blood Urine Urobilinogen Acetaminophen Discharge <JOSEFINA HUNTER - Last Filed: 11/30/16 07:42> <KIKE MARTI - Last Filed: 11/30/16 12:46> - Discharge Clinical Impression: Acute hepatitis, Jaundice, Hyperbilirubinemia, dehydration Uncontrolled diabetes mellitus Qualifiers: Diabetes mellitus type: type 2 Diabetes mellitus complication status: with hyperglycemia Diabetes mellitus termite control representative insulin use: with termite control representative use Qualified Code(s): E11.65 - Type 2 diabetes mellitus with hyperglycemia Condition: Stable Disposition: [facility]
[2016-11-29 23:59] LABS: HEMATOCRIT 39.5 % (36.0-47.0); HEMOGLOBIN 13.2 g/dL (12.0-15.5); HGB HCT DIFFERENCE 0.1; MEAN CORPUSCULAR HEMOGLOBIN 31.2 pg (27.0-33.4); MEAN CORPUSCULAR HGB CONC 33.5 g/dL (32.0-36.0); MEAN CORPUSCULAR VOLUME 93 fl (80-97); RED BLOOD COUNT 4.24 10^6/uL (3.72-5.28); RED CELL DISTRIBUTION WIDTH 14.4 % (11.5-14.0); WHITE BLOOD COUNT 5.1 10^3/uL (4.0-10.5)
[2016-11-30 00:02] LABS: ALBUMIN 3.3 g/dL (3.5-5.0); ALKALINE PHOSPHATASE 934 U/L (38-126); ANION GAP 12 (5-19); BILIRUBIN,TOTAL 12.4 mg/dL (0.2-1.3); BLOOD UREA NITROGEN 12 mg/dL (7-20); CARBON DIOXIDE 22 mmol/L (22-30); CHLORIDE 98 mmol/L (98-107); CREATININE RESULT 0.49 mg/dL (0.52-1.25); LIPASE 111.8 U/L (23-300); POTASSIUM 3.8 mmol/L (3.6-5.0); SODIUM 132.1 mmol/L (137-145); TOTAL PROTEIN 6.7 g/dL (6.3-8.2)
[2016-11-30] MEDS ORDERED: NORMAL SALINE 1000 ML 1,000 ML IV ONE ×3 (00:08→00:49)
[2016-11-30 00:09] LABS: BAND NEUTROPHILS % (MANUAL) 1 % (3-5); BASOPHILS % (MANUAL) 0 % (0-2); EOSINOPHILS % (MANUAL) 3 % (0-6); LYMPHOCYTES % (MANUAL) 23 % (13-45); TOTAL CELLS COUNTED 100
[2016-11-30 00:12] LABS: ANISOCYTOSIS SLIGHT; HYPOCHROMASIA SLIGHT; PLATELET CLUMPS PRESENT; POLYCHROMASIA SLIGHT; TARGET CELLS 1+; TOXIC GRANULATION SLIGHT
[2016-11-30 00:14] LABS: APPEARANCE,URINE CLEAR; BILIRUBIN,URINE NEGATIVE (NEGATIVE); GLUCOSE, URINE >=500 mg/dL (NEGATIVE); KETONES,URINE NEGATIVE (NEGATIVE); LEUKOCYTE ESTERASE,URINE NEGATIVE (NEGATIVE); NITRITE,URINE NEGATIVE (NEGATIVE); PROTEIN,URINE NEGATIVE (NEGATIVE); URINE SPECIFIC GRAVITY 1.036
[2016-11-30 00:25] LABS: ALANINE AMINOTRANSFERASE 1283 U/L (9-52); ASPARTATE AMINO TRANSFERASE 1423 U/L (14-36); GLUCOSE 454 mg/dL (75-110)
--- NOTE | 2016-11-30 01:25 | RADIOLOGY REPORT (SQ) ---
EXAM DESCRIPTION: U/S ABDOMEN LIMITED W/O DOP COMPLETED DATE/TIME: 11/30/2016 12:40 am REASON FOR STUDY: ruq pain, jaundice . Cholecystectomy in 2012. COMPARISON: Right upper quadrant ultrasound 11/30/2015. TECHNIQUE: Grayscale images acquired of the right upper quadrant and recorded on PACS. Additional se lected color Doppler and spectral images recorded. LIMITATIONS: Acoustical interference from fat or from air in the bowel. FINDINGS: PANCREAS: Obscured by overlying bowel gas LIVER: Measures 18.7 cm. There is increased echogenicity consistent with fatty infiltration. LIVER VASCULATURE: Normal directional flow of the main portal vein. GALLBLADDER: Surgically absent. ULTRASOUND-DETECTED VALDEZ'S SIGN: Not applicable. INTRAHEPATIC DUCTS AND COMMON DUCT: No intrahepatic biliary ductal dilation. Mildly dilated common b ile duct measuring 7.1 mm. INFERIOR VENA CAVA: Patent. AORTA: No aneurysm in the visualized segments. RIGHT KIDNEY: Measures 14.8 cm. Normal echogenicity. No hydronephrosis. PERITONEAL CAVITY AND RIGHT PLEURAL SPACE: No ascites or effusion. IMPRESSION: Mildly dilated common bile duct status post remote cholecystectomy. Fatty infiltration of the liver. TECHNICAL DOCUMENTATION: JOB ID: [id number] [employer]- All Rights Reserved
[2016-11-30 01:28] LABS: MAGNESIUM 1.5 mg/dL (1.6-2.3)
[2016-11-30 01:29] LABS: ALCOHOL < 10 mg/dL (NONE DETECTED)
[2016-11-30] MEDS ORDERED: HYDROMORPHONE HCL INJ/PF 2 MG/ML AMPULE IV ONE ×5 (01:30→10:18)
[2016-11-30] MEDS ORDERED: ONDANSETRON HCL INJ/PF 4 MG/2 ML SDV IV ONE ×3 (06:02→10:18)
[2016-11-30 06:47] LABS: ALBUMIN 2.9 g/dL (3.5-5.0); ALKALINE PHOSPHATASE 840 U/L (38-126); ANION GAP 11 (5-19); BILIRUBIN,DIRECT 9.9 mg/dL (0.0-0.4); BILIRUBIN,TOTAL 11.3 mg/dL (0.2-1.3); BLOOD UREA NITROGEN 8 mg/dL (7-20); CALCIUM 8.1 mg/dL (8.4-10.2); CARBON DIOXIDE 19 mmol/L (22-30); CHLORIDE 105 mmol/L (98-107); CREATININE RESULT 0.39 mg/dL (0.52-1.25); GLUCOSE 240 mg/dL (75-110); POTASSIUM 4.1 mmol/L (3.6-5.0); SODIUM 134.6 mmol/L (137-145); TOTAL PROTEIN 5.6 g/dL (6.3-8.2)
[2016-11-30 06:55] LABS: ALANINE AMINOTRANSFERASE 1187 U/L (9-52); ASPARTATE AMINO TRANSFERASE 1455 U/L (14-36)
[2016-11-30] MEDS ORDERED: INSULIN REG, HUMAN 100 UNIT/ML 3 ML VIAL (PYX) SUBCUT ONE ×2 (07:23→11:21)
--- NOTE | 2016-11-30 10:51 | EKG REPORT ---
SEVERITY:- NORMAL ECG - SINUS RHYTHM : Confirmed by: Abel Mcnulty 30-Nov-2016 10:49:47
[2016-11-30 13:46] VITALS: BP 128/76
== END 2016-11-30 13:46 | disposition short-term general hospital (02) ==
LOC: ER 22:59
DX: B17.9 Acute viral hepatitis, unspecified (principal); R17 Unspecified jaundice; E86.0 Dehydration; E11.65 Type 2 diabetes mellitus with hyperglycemia; E80.6 Other disorders of bilirubin metabolism; R10.11 Right upper quadrant pain; R11.2 Nausea with vomiting, unspecified; R53.81 Other malaise; Z97.5 Presence of (intrauterine) contraceptive device; Z90.49 Acquired absence of other specified parts of digestive tract; Z86.14 Personal history of Methicillin resistant Staphylococcus aureus infection
CPT/HCPCS: 93005; 96376; 99285; 96361; 96374; 96375; 36415; 82962; 80307 ×2; 82140; 83690; 83735; 84703; 85025; 80053; 81001; 80074; 76705; 93010; J2270; J1170; J1815; J2405; J7030

== ENCOUNTER 2017-01-18 06:38 | Inpatient (IN) | payer SELFPAY ==
[2017-01-18] MEDS ORDERED: NORMAL SALINE 1000 ML 2,000 ML IV ONE (07:03)
[2017-01-18] MEDS ORDERED: METOCLOPRAMIDE HCL INJ/PF 10 MG/2 ML SDV IV ONE (07:15)
[2017-01-18 07:22] LABS: VENOUS BLOOD BASE EXCESS -19.8 mmol/L; VENOUS BLOOD HCO3 8.4 mmol/L (20-32); VENOUS BLOOD PCO2 27.6 mmHg (35-63)
[2017-01-18 07:26] LABS: VENOUS BLOOD PH 7.1 (7.30-7.42)
[2017-01-18 07:27] LABS: HEMATOCRIT 47.4 % (36.0-47.0); HEMOGLOBIN 15.8 g/dL (12.0-15.5); MEAN CORPUSCULAR HEMOGLOBIN 32.8 pg (27.0-33.4); MEAN CORPUSCULAR HGB CONC 33.4 g/dL (32.0-36.0); MEAN CORPUSCULAR VOLUME 98 fl (80-97); RED BLOOD COUNT 4.82 10^6/uL (3.72-5.28); RED CELL DISTRIBUTION WIDTH 13.5 % (11.5-14.0); WHITE BLOOD COUNT 17.9 10^3/uL (4.0-10.5)
--- NOTE | 2017-01-18 07:31 | ER Document Report ---
ED GI/ - General Chief Complaint: High Blood Sugar Stated Complaint: VOMITING Time Seen by Provider: 01/18/17 07:03 Mode of Arrival: Medic Information source: Patient Notes: 41-year-old insulin-dependent diabetic complaining of upper abd pain since yesterday with persistent vomiting. Mild cough. She did not take her 70/30 insulin 60 units this morning. Her friend called EMS. She has been admitted diabetic ketoacidosis in the past. In November she was sent to [facility] because of jaundice and she states that they removed a stone from her liver. The jaundice has resolved. No fever, no chest pain or shortness of breath although she is tachypneic and tachycardic, no dysuria. TRAVEL OUTSIDE OF THE [place] IN LAST 30 DAYS: No - Related Data Allergies/Adverse Reactions: No Known Allergies Allergy (Verified 01/18/17 07:47) Home Medications: Current Home Medications Insulin NPH Hum/Reg Insulin Hm [Humulin 70-30 Vial] 60 unit SQ Q12 01/18/17 [ History] Past Medical History - General Information source: Patient - Social History Smoking Status: Current Every Day Smoker Frequency of alcohol use: None Drug Abuse: None Lives with: Spouse/Significant other Family History: Reviewed & Not Pertinent, COPD, DM Endocrine Medical History: Reports: Hx Diabetes Mellitus Type 1 Skin Medical History: Reports Hx MRSA Past Surgical History: Reports: Hx Section, Hx Cholecystectomy, Hx Tubal Ligation, Other - recent removal of liver "ston" 11/2016 - Immunizations Immunizations up to date: No Hx Diphtheria, Pertussis, Tetanus Vaccination: Yes Hx Pneumococcal Vaccination: 02/13/15 Review of Systems - Review of Systems Constitutional: See HPI EENT: No symptoms reported Cardiovascular: No symptoms reported Respiratory: No symptoms reported Gastrointestinal: See HPI Genitourinary: No symptoms reported Female Genitourinary: No symptoms reported Musculoskeletal: No symptoms reported Skin: No symptoms reported Hematologic/Lymphatic: No symptoms reported Neurological/Psychological: No symptoms reported Physical Exam - Vital signs Vitals: Pulse Ox 98 01/18/17 06:44 Interpretation: Tachycardic, Tachypneic - General General appearance: Alert In distress: Moderate - HEENT Head: Normocephalic, Atraumatic Eyes: Normal Conjunctiva: Normal Pupils: PERRL Mucous membranes: Dry Pharynx: Normal Neck: Supple. No: Lymphadenopathy - Respiratory Respiratory status: No respiratory distress Chest status: Nontender Breath sounds: Normal Chest palpation: Normal - Cardiovascular Rhythm: Regular Heart sounds: Normal auscultation Murmur: No - Abdominal Inspection: Normal Distension: No distension Bowel sounds: Normal Tenderness: Tender - mild epigastric Organomegaly: No organomegaly - Back Back: Normal, Nontender. No: CVA tenderness - Extremities General upper extremity: Normal inspection, Nontender, Normal color, Normal ROM , Normal temperature General lower extremity: Normal inspection, Nontender, Normal color, Normal ROM , Normal temperature, Normal weight bearing. No: Ba's sign - Neurological Neuro grossly intact: Yes Cognition: Normal Orientation: AAOx4 [place] Coma Scale Eye Opening: Spontaneous [place] Coma Scale Verbal: Oriented [place] Coma Scale Motor: Obeys Commands [place] Coma Scale Total: 15 Speech: Normal Motor strength normal: LUE, RUE, LLE, RLE Sensory: Normal - Psychological Associated symptoms: Normal affect, Normal mood - Skin Skin Temperature: Warm Skin Moisture: Dry Skin Color: Normal Skin irregularity: negative: Rash Course - Re-evaluation Re-evalutation: 01/18/17 08:09 Admitted to [facility] to ICU. Insulin drip ordered at 4 units per hour, gluc 660 C2 6, LFTS normal, potassium 5.6 urine and cbc pending. Coags normal. Pepcid 20mg IV ordered - Vital Signs Vital signs: Temp Pulse Resp BP Pulse Ox 100.2 F 109 H 15 131/64 H 98 01/18/17 18:02 01/18/17 16:00 01/18/17 18:02 01/18/17 18:02 01/18/17 18:02 - Laboratory Result Diagrams: 01/18/17 15:45 01/18/17 18:00 Laboratory results interpreted by me: 01/18/17 01/18/17 01/18/17 07:05 07:05 07:05 WBC 17.9 H Hgb 15.8 H Hct 47.4 H MCV 98 H Seg Neuts % (Manual) 84 H Band Neutrophils % 1 L Lymphocytes % (Manual) 7 L Abs Neuts (Manual) 15.2 H VBG pH 7.10 L* VBG pCO2 27.6 L VBG HCO3 8.4 L Sodium 136.5 L Potassium 5.6 H Chloride 94 L Carbon Dioxide 7 L* Anion Gap 36 H Glucose 660 H* POC Glucose Hemoglobin A1c % Direct Bilirubin 0.9 H Alkaline Phosphatase 137 H Lipase TSH 01/18/17 01/18/17 01/18/17 07:05 07:05 07:15 WBC Hgb Hct MCV Seg Neuts % (Manual) Band Neutrophils % Lymphocytes % (Manual) Abs Neuts (Manual) VBG pH VBG pCO2 VBG HCO3 Sodium Potassium Chloride Carbon Dioxide Anion Gap Glucose POC Glucose Hemoglobin A1c % 8.0 H Direct Bilirubin Alkaline Phosphatase Lipase 22.7 L TSH 0.11 L 01/18/17 08:20 WBC Hgb Hct MCV Seg Neuts % (Manual) Band Neutrophils % Lymphocytes % (Manual) Abs Neuts (Manual) VBG pH VBG pCO2 VBG HCO3 Sodium Potassium Chloride Carbon Dioxide Anion Gap Glucose POC Glucose > 550 H* Hemoglobin A1c % Direct Bilirubin Alkaline Phosphatase Lipase TSH Discharge - Discharge Clinical Impression: DKA (diabetic ketoacidoses) Qualifiers: Diabetes mellitus type: type 2 Diabetes mellitus complication detail: without coma Qualified Code(s): E13.10 - Other specified diabetes mellitus with ketoacidosis without coma Condition: Fair Disposition: ADMITTED INPATIENT Admitting Provider: Hospitalist Unit Admitted: ICU
[2017-01-18 07:41] LABS: ALANINE AMINOTRANSFERASE 29 U/L (9-52); ALBUMIN 4.8 g/dL (3.5-5.0); ALKALINE PHOSPHATASE 137 U/L (38-126); ASPARTATE AMINO TRANSFERASE 18 U/L (14-36); BILIRUBIN,DIRECT 0.9 mg/dL (0.0-0.4); BLOOD UREA NITROGEN 20 mg/dL (7-20); CALCIUM 10.1 mg/dL (8.4-10.2); CHLORIDE 94 mmol/L (98-107); CREATININE RESULT 0.98 mg/dL (0.52-1.25); POTASSIUM 5.6 mmol/L (3.6-5.0); SODIUM 136.5 mmol/L (137-145)
[2017-01-18 07:48] LABS: PROTHROMBIN TIME 13.8 SEC (11.4-15.4)
[2017-01-18 07:49] LABS: PARTIAL THROMBOPLASTIN TIME 30.9 SEC (23.5-35.8)
[2017-01-18 07:53] LABS: ANION GAP 36 (5-19)
[2017-01-18 07:56] LABS: CARBON DIOXIDE 7 mmol/L (22-30); GLUCOSE 660 mg/dL (75-110)
[2017-01-18] MEDS ORDERED: DEXTROSE 40% GEL 15 GM TUBE PO PRN ×9 (08:01→11:45)
[2017-01-18] MEDS ORDERED: NORMAL SALINE 100 ML with INSULIN REGULAR, HUMAN 100 UNIT IV PRN ×4 (08:01→08:16)
[2017-01-18] MEDS ORDERED: DEXTROSE 50%-WATER 25 GM/50 ML DISP.SYRIN IV PRN ×8 (08:01→09:25)
[2017-01-18] MEDS ORDERED: GLUCAGON,HUMAN RECOMB 1 MG INJ IM PRN ×4 (08:01→11:45)
[2017-01-18] MEDS ORDERED: FAMOTIDINE INJ/PF 20 MG/2 ML SDV IV ONE (08:07)
[2017-01-18 08:13] LABS: BAND NEUTROPHILS % (MANUAL) 1 % (3-5); BASOPHILS % (MANUAL) 1 % (0-2); EOSINOPHILS % (MANUAL) 0 % (0-6); LYMPHOCYTES % (MANUAL) 7 % (13-45); TOTAL CELLS COUNTED 100
[2017-01-18 08:15] LABS: POIKILOCYTOSIS SLIGHT; POLYCHROMASIA SLIGHT; TOXIC GRANULATION SLIGHT; TOXIC VACUOLATION PRESENT
[2017-01-18 08:16] LABS: OVALOCYTES SLIGHT; PLATELET CLUMPS PRESENT
[2017-01-18] MEDS ORDERED: INSULIN REG, HUMAN 100 UNIT/ML 3 ML VIAL (PYX) ONE (08:26)
--- NOTE | 2017-01-18 08:36 | RADIOLOGY REPORT (SQ) ---
EXAM DESCRIPTION: CHEST SINGLE VIEW COMPLETED DATE/TIME: 01/18/2017 8:19 am REASON FOR STUDY: cough COMPARISON: 08/06/2015, 11/30/2015 EXAM PARAMETERS: NUMBER OF VIEWS: One view. TECHNIQUE: Single frontal radiographic view of the chest acquired. RADIATION DOSE: NA LIMITATIONS: None. FINDINGS: LUNGS AND PLEURA: No opacities, masses or pneumothorax. No pleural effusion. MEDIASTINUM AND HILAR STRUCTURES: No masses. Contour normal. HEART AND VASCULAR STRUCTURES: Heart normal in size. Normal vasculature. BONES: No acute findings. HARDWARE: None in the chest. OTHER: No other significant finding. IMPRESSION: NO ACUTE RADIOGRAPHIC FINDING IN THE CHEST. TECHNICAL DOCUMENTATION: JOB ID: [id number] [employer]- All Rights Reserved
[2017-01-18] MEDS ORDERED: NORMAL SALINE INJ/PF 0.9% 10 ML SDV IV PRN (09:00)
[2017-01-18] MEDS ORDERED: ACETAMINOPHEN 325 MG TABLET PO PRN (09:10)
[2017-01-18] MEDS ORDERED: 1/2 NORMAL SALINE 2,000 ML IV PRN (09:10)
[2017-01-18] MEDS ORDERED: ACETAMINOPHEN 650 MG SUPP.RECT PR PRN (09:10)
[2017-01-18] MEDS ORDERED: GLUCAGON,HUMAN RECOMB 1 MG INJ SUBCUT PRN (09:10)
[2017-01-18] MEDS: PANTOPRAZOLE SODIUM 40 MG VIAL IV SCH ×2 (10:08→22:35)
[2017-01-18 10:28] LABS: BLOOD UREA NITROGEN 19 mg/dL (7-20); CALCIUM 9.3 mg/dL (8.4-10.2); CHLORIDE 104 mmol/L (98-107); CREATININE RESULT 0.89 mg/dL (0.52-1.25); POTASSIUM 5.1 mmol/L (3.6-5.0); SODIUM 138.6 mmol/L (137-145)
[2017-01-18 10:51] LABS: GLUCOSE 547 mg/dL (75-110)
[2017-01-18 10:52] LABS: CARBON DIOXIDE < 5 mmol/L (22-30)
[2017-01-18 10:54] LABS: APPEARANCE,URINE CLEAR; BILIRUBIN,URINE NEGATIVE (NEGATIVE); GLUCOSE, URINE >=500 mg/dL (NEGATIVE); KETONES,URINE 80 mg/dL (NEGATIVE); LEUKOCYTE ESTERASE,URINE NEGATIVE (NEGATIVE); NITRITE,URINE NEGATIVE (NEGATIVE); PROTEIN,URINE NEGATIVE (NEGATIVE); URINE SPECIFIC GRAVITY 1.021; UROBILINOGEN,URINE NEGATIVE mg/dL (<2.0)
[2017-01-18 11:06] LABS: URINE BARBITURATES SCREEN NEGATIVE; URINE METHADONE SCREEN NEGATIVE; URINE PHENCYCLIDINE SCREEN NEGATIVE
[2017-01-18 11:08] LABS: URINE OPIATES LOW UNCONFIRMED POSITIVE
[2017-01-18] MEDS ORDERED: DEXTROSE 50%-WATER SYRINGE 25 GM/50 ML DOSE IV PRN (11:45)
[2017-01-18] MEDS ORDERED: DEXTROSE 50%-WATER SYRINGE 12.5 GM/25 ML DOSE IV PRN (11:45)
[2017-01-18] MEDS ORDERED: INSULIN, REGULAR 100 UNIT/100 ML NORMAL SALINE IV PRN ×2 (11:45)
[2017-01-18] MEDS ORDERED: DEXTROSE 40% GEL 15 GM TUBE X 2 PO PRN (11:45)
[2017-01-18] MEDS: MORPHINE SULFATE 10 MG/ML INJ IV PRN ×2 (12:28→19:52)
--- NOTE | 2017-01-18 12:42 | OPERATIVE REPORT E ---
Operative Report NAME: CAMMIE ROBLES : 1975 AGE: 41Y DATE OF SURGERY: 01/18/2017 ROOM: 606 PREOPERATIVE DIAGNOSIS: Poor veins for IV access and patient needed central line for DKA. POSTOPERATIVE DIAGNOSIS: Poor veins for IV access and patient needed central line for DKA. PROCEDURE: Placement of left subclavian catheter. SURGEON: LATONIA BARAJAS M.D. ANESTHESIA: Local. INDICATIONS: This is a 41-year-old female admitted for DKA. Patient has poor peripheral veins for IV access and needed central line. DESCRIPTION OF PROCEDURE: The patient was placed in supine position and the left upper chest and neck were then prepped and draped in the usual sterile fashion. Patient was then placed in Trendelenburg position and the left infraclavicular area was then anesthetized using 1% Xylocaine. A needle was inserted towards the subclavian vein and the veins subsequently punctured. A guidewire was placed through the needle into the direction of the superior vena cava. Needle was removed and the puncture site enlarged and a triple lumen catheter inserted through the guidewire towards the area of the presumed superior vena cava. At about 15 cm the catheter was inserted. All the trocars were irrigated with saline solution after adequate easy aspiration of blood. The catheter was then anchored to the skin with 3-0 silk. Biopatch placed over the incision site and a transparent sterile dressing placed over the catheter. Chest x-ray was obtained and showed the catheter in good position in the superior vena cava with no evidence of pneumothorax. Patient tolerated the procedure well. DICTATING PHYSICIAN: LATONIA BARAJAS M.D. [id number] PHY#: [id number] ID: [id number] JOB#: [id number] ACCT: [id number] cc:LATONIA BARAJAS M.D. >
--- NOTE | 2017-01-18 12:44 | RADIOLOGY REPORT (SQ) ---
EXAM DESCRIPTION: CHEST SINGLE VIEW COMPLETED DATE/TIME: 01/18/2017 11:49 am REASON FOR STUDY: CENTRAL LINE PLACEMENT COMPARISON: Earlier the same day. NUMBER OF VIEWS: One view. TECHNIQUE: Single frontal radiographic image of the chest acquired. LIMITATIONS: None. FINDINGS: LUNGS AND PLEURA: Stable appearance. No pneumothorax. MEDIASTINUM AND HEART: Stable heart size and mediastinal structures. SUPPORT DEVICES: Left-sided central line with tip overlying SVC. BONY STRUCTURES: No acute findings. HARDWARE: None. OTHER: No other significant finding. IMPRESSION: Good position of central line. No pneumothorax.
[2017-01-18 13:00] LABS: BLOOD UREA NITROGEN 16 mg/dL (7-20); CALCIUM 8.7 mg/dL (8.4-10.2); CHLORIDE 106 mmol/L (98-107); GLUCOSE 289 mg/dL (75-110); PHOSPHORUS 3.9 mg/dL (2.5-4.5); SODIUM 138.3 mmol/L (137-145)
[2017-01-18] MEDS: PROMETHAZINE HCL INJ 25 MG/1 ML VIAL IV PRN ×2 (13:03→19:53)
[2017-01-18 13:07] LABS: ANION GAP 26 (5-19)
[2017-01-18 13:08] LABS: CARBON DIOXIDE 6 mmol/L (22-30)
[2017-01-18] MEDS ORDERED: INFLUENZA ADLT QUAD (36MOS+) 2017-18 VAC 0.5 ML SYR IM PRN (13:15)
[2017-01-18] MEDS: HEPARIN SOD (PORCINE) 5,000 UNIT/ML 1 ML SYRINGE SUBCUT SCH ×2 (13:34→22:34)
[2017-01-18] MEDS ORDERED: 1/2 NORMAL SALINE 1,000 ML IV ONE (14:00)
[2017-01-18] MEDS ORDERED: NICOTINE 21 MG/24 HR PATCH.TD24 TD PRN (14:01)
--- NOTE | 2017-01-18 14:05 | PDOC H&P ---
History of Present Illness Admission Date/PCP: 01/18/17 09:10 History of Present Illness: CAMMIE ROBLES is a 41 year old female independent diabetic states she does not have any health insurance she gets her insulin [id number] she takes 70 /30 twice a day. Patient has a long history of insulin-dependent diabetes type 2 manages a type I. She came to the ER with nausea vomiting abdominal pain she was found to have DKA. She denies having a medical doctor. Patient states she takes 70/30 insulin twice a day but she did not take it last night or more today , she has been throwing up and not eating. She has had multiple admissions for the same problem. Patient's been nausea vomiting for past 2 days. Denies any family members with stomach virus or sick contacts. Patient denies seizures, chest pain. She has some shortness of breath, increased urination or thirst decreased appetite. Patient did state she took a Roxicodone prior to coming in because she felt so bad. In the ER Patient was found to have a glucose of 660, potassium was 5.6, pH 7.10 bicarb was 6, anion gap 36 ,coags were normal. She was started on insulin drip at 40 U /h and we were contacted to admit the patient under hospitalist service. Patient was transferred to ICU for further management care. Past Medical History Cardiac Medical History: Denies: Atrial Fibrillation, Congestive Heart Failure, Coronary Artery Disease, DVT, Myocardial Infarction, Hyperlipidema, Hypertension, Peripheral Vascular Disease, Pulmonary Embolism, Heart Murmur Pulmonary Medical History: Denies: Asthma, Bronchitis, Chronic Obstructive Pulmonary Disease (COPD), Intubation, Pneumonia, Respiratory Failure, Sleep Apnea, Tuberculosis Neurological Medical History: Denies: Migraine, Seizures Endocrine Medical History: Reports: Diabetes Mellitus Type 1, Diabetes Mellitus Type 2, Obesity Denies: Hyperthyroidism, Hypothyroidism Renal/ Medical History: Denies: End Stage Renal Disease Malignancy Medical History: Denies: Bone Cancer, Brain Cancer, Breast Cancer, Cervical Cancer, Colorectal Cancer, Leukemia, Liver Cancer, Lung Cancer, Lymphoma, Ovarian Cancer , Pancreatic Cancer, Renal (Kidney) Cancer, Skin Cancer GI Medical History: Denies: Cirrhosis, Crohn's Disease, Diverticulitis, Gastroesophageal Reflux Disease, Hepatitis, Hiatal Hernia, Ulcerative Colitis Musculoskeltal Medical History: Reports: Fibromyalgia Denies: Arthritis, Gout Skin Medical History: Denies: Eczema, Psoriasis Psychiatric Medical History: Reports: General Anxiety Disorder, Tobacco Dependency Denies: Depression Traumatic Medical History: Denies: Gunshot Wound, Pneumothorax, Traumatic Brain Injury Past Surgical History Past Surgical History: Reports: Section, Cholecystectomy, Tubal Ligation Social History Smoking Status: Current Every Day Smoker Number of Years Smokin Last Time Smoked: 01/17/2017 Frequency of Alcohol Use: None Hx Recreational Drug Use: No Drugs: None Hx Prescription Drug Abuse: No Family History Family History: Reviewed & Not Pertinent, COPD, DM Parental Family History Reviewed: No Children Family History Reviewed: NA Sibling(s) Family History Reviewed.: NA Medication/Allergy Home Medications: Insulin NPH Hum/Reg Insulin Hm [Humulin 70-30 Vial] 60 unit SQ Q12 01/18/17 Allergies/Adverse Reactions: No Known Allergies Allergy (Verified 01/18/17 07:47) Review of Systems Constitutional: PRESENT: fever(s), headache(s), night sweats, weakness. ABSENT : chills, weight gain, weight loss Eyes: PRESENT: visual disturbances Ears: ABSENT: hearing changes Nose, Mouth, and Throat: PRESENT: as per HPI Cardiovascular: PRESENT: as per HPI. ABSENT: chest pain, dyspnea on exertion, edema, orthropnea, palpitations Respiratory: ABSENT: cough, hemoptysis Gastrointestinal: PRESENT: as per HPI, abdominal pain, coffee ground emesis, nausea, vomiting. ABSENT: constipation, diarrhea, hematemesis, hematochezia Genitourinary: PRESENT: as per HPI. ABSENT: dysuria, hematuria Musculoskeletal: ABSENT: joint swelling Integumentary: PRESENT: diaphoresis. ABSENT: rash, wounds Neurological: PRESENT: as per HPI. ABSENT: abnormal gait, abnormal speech, confusion, dizziness, focal weakness, syncope Psychiatric: PRESENT: as per HPI. ABSENT: anxiety, depression, homidical ideation, suicidal ideation Endocrine: ABSENT: cold intolerance, heat intolerance, polydipsia, polyuria Hematologic/Lymphatic: ABSENT: easy bleeding, easy bruising Physical Exam Vital Signs: Temp Pulse Resp BP Pulse Ox 99.5 F 128 H 20 143/73 H 100 01/18/17 12:01 01/18/17 12:01 01/18/17 13:00 01/18/17 12:02 01/18/17 13:00 Intake & Output 11/06/3001/18/17 01/19/17 07:59 06:59 06:59 Output Total 1850 Balance -1850 Weight 88 kg General appearance: PRESENT: severe distress, well-developed, well-nourished Head exam: PRESENT: atraumatic, normocephalic Eye exam: PRESENT: conjunctiva pink, EOMI, PERRLA. ABSENT: scleral icterus Ear exam: PRESENT: normal external ear exam Mouth exam: PRESENT: moist, tongue midline Neck exam: ABSENT: carotid bruit, JVD, lymphadenopathy, thyromegaly Respiratory exam: PRESENT: accessory muscle use, tachypnea. ABSENT: rales, rhonchi, unlabored, wheezes Cardiovascular exam: PRESENT: RRR, tachycardia. ABSENT: diastolic murmur, rubs , systolic murmur Pulses: PRESENT: normal dorsalis pedis pul Vascular exam: PRESENT: normal capillary refill GI/Abdominal exam: PRESENT: normal bowel sounds, soft. ABSENT: distended, guarding, mass, organolmegaly, rebound, tenderness Rectal exam: PRESENT: deferred Extremities exam: PRESENT: full ROM. ABSENT: calf tenderness, clubbing, pedal edema Musculoskeletal exam: PRESENT: ambulatory, full ROM Neurological exam: PRESENT: alert, awake, oriented to person, oriented to place , oriented to time, oriented to situation, CN II-XII grossly intact. ABSENT: motor sensory deficit Psychiatric exam: PRESENT: appropriate affect, normal mood. ABSENT: homicidal ideation, suicidal ideation Skin exam: PRESENT: dry, intact, warm. ABSENT: cyanosis, rash Results Laboratory Results: 01/18/17 12:15 01/18/17 01/18/17 01/18/17 10:09 10:28 12:15 Sodium 138.6 138.3 Potassium 5.1 H 5.0 Chloride 104 106 Carbon Dioxide < 5 L* 6 L* Anion Gap Not Reportable 26 H BUN 19 16 Creatinine 0.89 0.80 Est GFR ( Amer) > 60 > 60 Est GFR (Non-Af Amer) > 60 > 60 Glucose 547 H* 289 H Calcium 9.3 8.7 Phosphorus 3.9 Urine Color STRAW Urine Appearance CLEAR Urine pH 5.0 Ur Specific [place] 1.021 Urine Protein NEGATIVE Urine Glucose (UA) >=500 H Urine Ketones 80 H Urine Blood SMALL H Urine Nitrite NEGATIVE Ur Leukocyte Esterase NEGATIVE Urine WBC (Auto) 2 Urine RBC (Auto) 0 Impressions: Chest X-Ray 01/18/17 07:31 IMPRESSION: NO ACUTE RADIOGRAPHIC FINDING IN THE CHEST. Assessment & Plan - Diagnosis (1) DKA (diabetic ketoacidoses) Qualifiers: Diabetes mellitus type: type 2 Diabetes mellitus complication detail: without coma Qualified Code(s): E13.10 - Other specified diabetes mellitus with ketoacidosis without coma Is this a current diagnosis for this admission?: Yes Plan: Patient was admitted to the ICU. Was started on insulin protocol. Will check PVCs every 2 hours. She is currently getting the right of 5 units per hour. Unable to get IV access and patient. She was given a central line appreciate surgeon for assistance. Patient had received 2 L of normal saline in the ER. I have given her a total of 3 L half-normal saline and will reevaluate her BMP at that time for more IV fluids. Patient's heart rate remains tachy at 120- 130. Hemoglobin A1c on admission was 8.0. Initial glucose was 660 anion gap was 36 potassium sodium is 136.5 potassium is 5.6 she had a bicarb of 8.4, and the onset was 7, troponins were 0.012 BNP was 38 lipase 22.7 TSH is 0.11, she also had a negative . Patient had greater than 500 glucose in her urine positive ketones (2) Dehydration Plan: Aggressive IV replacement hydration. She is already received approximately 5 L of fluids thus far we will continue to be aggressive. Will start replacing potassium in her IV fluids once her glucose comes down.Every hour Accu-Cheks, will start normal saline at 300 mL's an hour for 2 hours then down to 250 cc an hour. . (3) Hyperglycemia due to type 1 diabetes mellitus Is this a current diagnosis for this admission?: Yes Plan: Every hour Accu-Cheks continue to monitor blood sugars continue insulin drip per protocol. We will initiate a long-acting insulin once her glucose is little more stable. I have also encouraged patient go to the free clinic to be evaluated and tested for managing better management of her diabetes. (4) Nausea & vomiting Qualifiers: Vomiting type: unspecified Vomiting Intractability: non-intractable Qualified Code(s): R11.2 - Nausea with vomiting, unspecified Is this a current diagnosis for this admission?: Yes (5) Tobacco abuse Is this a current diagnosis for this admission?: Yes Plan: We will could a nicotine patch on patient. Encourage smoking cessation watch patient's little more coherent (6) SIRS (systemic inflammatory response syndrome) Is this a current diagnosis for this admission?: Yes Plan: Sirs, patient meets surgical criteria is likely secondary from DKA with an elevated WBC continue to monitor
[2017-01-18] MEDS ORDERED: POTASSI CL IV PRN (14:20)
[2017-01-18] MEDS ORDERED: [UNRECOGNIZED DRUG - OTHER] IV PRN (14:20)
[2017-01-18] MEDS ORDERED: D5 IV PRN (14:20)
[2017-01-18] MEDS ORDERED: POTASSI CL 20 MEQ/D5-1/2NS 1L 1,000 ML IV ONE (14:27)
[2017-01-18 14:42] LABS: BLOOD UREA NITROGEN 14 mg/dL (7-20); CALCIUM 8.2 mg/dL (8.4-10.2); CHLORIDE 106 mmol/L (98-107); CREATININE RESULT 0.71 mg/dL (0.52-1.25); GLUCOSE 208 mg/dL (75-110); POTASSIUM 4.9 mmol/L (3.6-5.0)
[2017-01-18 14:47] LABS: ANION GAP 19 (5-19)
[2017-01-18 14:50] LABS: SODIUM 135.2 mmol/L (137-145)
[2017-01-18 15:00] LABS: CARBON DIOXIDE 10 mmol/L (22-30)
[2017-01-18] MEDS: 1/2 NORMAL SALINE 1,000 ML IV PRN ×2 (15:06→19:53)
[2017-01-18] MEDS: ONDANSETRON HCL INJ/PF 4 MG/2 ML SDV IV PRN (15:59)
[2017-01-18 16:03] LABS: ABSOLUTE BASOPHILS # (AUTO) 0.1 10^3/uL (0.0-0.2); ABSOLUTE LYMPHOCYTES (AUTO) 2.8 10^3/uL (0.5-4.7); ABSOLUTE MONOCYTES (AUTO) 1.4 10^3/uL (0.1-1.4); BASOPHILS % (AUTO) 0.5 % (0-2); EOSINOPHILS % (AUTO) 0.1 % (0-6); HEMATOCRIT 39.5 % (36.0-47.0); LYMPHOCYTES % (AUTO) 15.9 % (13-45); MEAN CORPUSCULAR HGB CONC 34.1 g/dL (32.0-36.0); MONOCYTES % (AUTO) 8.1 % (3-13); RED BLOOD COUNT 4.21 10^6/uL (3.72-5.28); SEGMENTED NEUTROPHILS % (AUTO) 75.4 % (42-78); WHITE BLOOD COUNT 17.3 10^3/uL (4.0-10.5)
[2017-01-18 16:07] LABS: HEMOGLOBIN 13.5 g/dL (12.0-15.5); MEAN CORPUSCULAR VOLUME 94 fl (80-97)
[2017-01-18 18:39] LABS: ANION GAP 14 (5-19); BLOOD UREA NITROGEN 10 mg/dL (7-20); CALCIUM 8.5 mg/dL (8.4-10.2); CARBON DIOXIDE 16 mmol/L (22-30); CHLORIDE 107 mmol/L (98-107); CREATININE RESULT 0.58 mg/dL (0.52-1.25); GLUCOSE 185 mg/dL (75-110); POTASSIUM 4.7 mmol/L (3.6-5.0); SODIUM 137.2 mmol/L (137-145)
[2017-01-18] MEDS: POTASSI CL 20 MEQ/D5-1/2NS 1L 1,000 ML IV PRN (22:34)
[2017-01-18 23:08] LABS: ANION GAP 11 (5-19); BLOOD UREA NITROGEN 7 mg/dL (7-20); CALCIUM 8.5 mg/dL (8.4-10.2); CARBON DIOXIDE 20 mmol/L (22-30); CHLORIDE 107 mmol/L (98-107); CREATININE RESULT 0.53 mg/dL (0.52-1.25); GLUCOSE 181 mg/dL (75-110); POTASSIUM 4.1 mmol/L (3.6-5.0); SODIUM 137.7 mmol/L (137-145)
[2017-01-19] MEDS: METOCLOPRAMIDE HCL INJ/PF 10 MG/2 ML SDV IV SCH ×4 (02:10→17:49)
[2017-01-19] MEDS: POTASSI CL 20 MEQ/D5-1/2NS 1L 1,000 ML IV PRN ×2 (02:35→07:42)
[2017-01-19 02:53] LABS: ANION GAP 10 (5-19); BLOOD UREA NITROGEN 6 mg/dL (7-20); CALCIUM 8.5 mg/dL (8.4-10.2); CARBON DIOXIDE 21 mmol/L (22-30); CHLORIDE 108 mmol/L (98-107); CREATININE RESULT 0.52 mg/dL (0.52-1.25); GLUCOSE 137 mg/dL (75-110); POTASSIUM 3.8 mmol/L (3.6-5.0)
[2017-01-19] MEDS: HEPARIN SOD (PORCINE) 5,000 UNIT/ML 1 ML SYRINGE SUBCUT SCH ×3 (06:12→22:05)
[2017-01-19 06:26] LABS: ABSOLUTE EOSINOPHILS # (AUTO) 0.1 10^3/uL (0.0-0.6); ABSOLUTE LYMPHOCYTES (AUTO) 1.9 10^3/uL (0.5-4.7); ABSOLUTE MONOCYTES (AUTO) 0.9 10^3/uL (0.1-1.4); ABSOLUTE NEUT (AUTO) 4.9 10^3/uL (1.7-8.2); BASOPHILS % (AUTO) 0.6 % (0-2); EOSINOPHILS % (AUTO) 1.4 % (0-6); HEMATOCRIT 37.8 % (36.0-47.0); HEMOGLOBIN 13.5 g/dL (12.0-15.5); HGB HCT DIFFERENCE 2.7; LYMPHOCYTES % (AUTO) 24.3 % (13-45); MEAN CORPUSCULAR HEMOGLOBIN 32.9 pg (27.0-33.4); MEAN CORPUSCULAR HGB CONC 35.7 g/dL (32.0-36.0); MEAN CORPUSCULAR VOLUME 92 fl (80-97); MONOCYTES % (AUTO) 11.7 % (3-13); RED BLOOD COUNT 4.09 10^6/uL (3.72-5.28); RED CELL DISTRIBUTION WIDTH 12.9 % (11.5-14.0); WHITE BLOOD COUNT 7.8 10^3/uL (4.0-10.5)
[2017-01-19] MEDS: LORAZEPAM INJ 2 MG/1 ML VIAL IV PRN ×2 (06:33→13:57)
[2017-01-19 06:36] LABS: ANION GAP 8 (5-19); BLOOD UREA NITROGEN 4 mg/dL (7-20); CALCIUM 7.6 mg/dL (8.4-10.2); CARBON DIOXIDE 21 mmol/L (22-30); CHLORIDE 111 mmol/L (98-107); CREATININE RESULT 0.42 mg/dL (0.52-1.25); GLUCOSE 131 mg/dL (75-110); MAGNESIUM 1.4 mg/dL (1.6-2.3); POTASSIUM 3.4 mmol/L (3.6-5.0); SODIUM 139.7 mmol/L (137-145)
[2017-01-19] MEDS ORDERED: INSULIN REG, HUMAN 100 UNIT/ML 3 ML VIAL (PYX) SUBCUT PRN (08:36)
[2017-01-19] MEDS ORDERED: GLUCAGON,HUMAN RECOMB 1 MG INJ IM PRN (08:36)
[2017-01-19] MEDS ORDERED: DEXTROSE 40% GEL 15 GM TUBE PO PRN ×2 (08:36)
[2017-01-19] MEDS ORDERED: DEXTROSE 50%-WATER 25 GM/50 ML DISP.SYRIN IV PRN ×2 (08:36)
[2017-01-19] MEDS ORDERED: INSULIN LISPRO 100 UNIT/ML 3 ML VIAL SUBCUT PRN (08:40)
[2017-01-19] MEDS ORDERED: MAGNESIUM SULFATE PF/INJ 40 MEQ/10 ML SDV IV ONE (09:00)
[2017-01-19] MEDS ORDERED: MAGNESIUM SULFATE/D5W 1 GM/100 ML RTUPB IV ONE (09:30)
[2017-01-19] MEDS: PANTOPRAZOLE SODIUM 40 MG VIAL IV SCH ×2 (10:17→22:05)
[2017-01-19] MEDS: POTASSI CL 20 MEQ/50 ML RIDER 20 MEQ/50 ML RTUPB IV SCH ×2 (10:17→11:40)
[2017-01-19] MEDS: INSULIN DETEMIR 100 UNIT/ML 3 ML PEN SUBCUT SCH ×2 (10:25→22:05)
[2017-01-19] MEDS: INSULIN LISPRO 100 UNIT/ML 3 ML VIAL SUBCUT SCH ×2 (11:40→16:06)
--- NOTE | 2017-01-19 16:55 | PDOC PROGRESS REPORT ---
Subjective Progress Note for:: 01/19/17 Physical Exam Vital Signs: Temp Pulse Resp BP Pulse Ox 99.3 F 97 15 121/75 99 01/19/17 14:02 01/19/17 14:00 01/19/17 14:02 01/19/17 14:02 01/19/17 14:02 Intake & Output 01/18/17 01/19/17 01/20/17 06:59 06:59 06:59 Intake Total 5478 Output Total 5401 1450 Balance 8 -1450 Weight 91.8 kg General appearance: PRESENT: no acute distress, cooperative, well-developed, well-nourished Head exam: PRESENT: atraumatic, normocephalic Eye exam: PRESENT: conjunctiva pink, EOMI, PERRLA. ABSENT: scleral icterus Ear exam: PRESENT: normal external ear exam Mouth exam: PRESENT: moist, tongue midline Neck exam: ABSENT: carotid bruit, JVD, lymphadenopathy, thyromegaly Respiratory exam: PRESENT: clear to auscultation purvi. ABSENT: rales, rhonchi, wheezes Cardiovascular exam: PRESENT: RRR. ABSENT: diastolic murmur, rubs, systolic murmur Pulses: PRESENT: normal dorsalis pedis pul Vascular exam: PRESENT: normal capillary refill GI/Abdominal exam: PRESENT: normal bowel sounds, soft. ABSENT: distended, guarding, mass, organolmegaly, rebound, tenderness Rectal exam: PRESENT: deferred Extremities exam: PRESENT: full ROM. ABSENT: calf tenderness, clubbing, pedal edema Neurological exam: PRESENT: alert, awake, oriented to person, oriented to place , oriented to time, oriented to situation, CN II-XII grossly intact. ABSENT: motor sensory deficit Psychiatric exam: PRESENT: appropriate affect, normal mood. ABSENT: homicidal ideation, suicidal ideation Skin exam: PRESENT: dry, intact, warm. ABSENT: cyanosis, rash Results Laboratory Results: 01/19/17 06:05 01/19/17 06:05 01/18/17 01/18/17 01/19/17 18:00 22:40 02:10 WBC RBC Hgb Hct MCV MCH MCHC RDW Plt Count Seg Neutrophils % Lymphocytes % Monocytes % Eosinophils % Basophils % Absolute Neutrophils Absolute Lymphocytes Absolute Monocytes Absolute Eosinophils Absolute Basophils Sodium 137.2 137.7 139.0 Potassium 4.7 4.1 3.8 Chloride 107 107 108 H Carbon Dioxide 16 L 20 L 21 L Anion Gap 14 11 10 BUN 10 7 6 L Creatinine 0.58 0.53 0.52 Est GFR ( Amer) > 60 > 60 > 60 Est GFR (Non-Af Amer) > 60 > 60 > 60 Glucose 185 H 181 H 137 H Calcium 8.5 8.5 8.5 Magnesium 01/19/17 01/19/17 06:05 06:05 WBC 7.8 RBC 4.09 Hgb 13.5 Hct 37.8 MCV 92 MCH 32.9 MCHC 35.7 RDW 12.9 Plt Count 239 Seg Neutrophils % 62.0 Lymphocytes % 24.3 Monocytes % 11.7 Eosinophils % 1.4 Basophils % 0.6 Absolute Neutrophils 4.9 Absolute Lymphocytes 1.9 Absolute Monocytes 0.9 Absolute Eosinophils 0.1 Absolute Basophils 0.0 Sodium 139.7 Potassium 3.4 L Chloride 111 H Carbon Dioxide 21 L Anion Gap 8 BUN 4 L Creatinine 0.42 L Est GFR ( Amer) > 60 Est GFR (Non-Af Amer) > 60 Glucose 131 H Calcium 7.6 L Magnesium 1.4 L 01/18/17 01/19/17 15:45 02:10 Troponin I < 0.012 < 0.012 Impressions: Chest X-Ray 01/18/17 07:31 IMPRESSION: NO ACUTE RADIOGRAPHIC FINDING IN THE CHEST. Assessment & Plan - Diagnosis (1) Hyperglycemia due to type 1 diabetes mellitus Is this a current diagnosis for this admission?: Yes Plan: Every hour Accu-Cheks continue to monitor blood sugars continue insulin drip per protocol. We will initiate a long-acting insulin once her glucose is little more stable. I have also encouraged patient go to the free clinic to be evaluated and tested for managing better management of her diabetes. (2) DKA (diabetic ketoacidoses) Qualifiers: Diabetes mellitus type: type 2 Diabetes mellitus complication detail: without coma Qualified Code(s): E13.10 - Other specified diabetes mellitus with ketoacidosis without coma Is this a current diagnosis for this admission?: Yes Plan: Patient was admitted to the ICU. Was started on insulin protocol. Will check PVCs every 2 hours. She is currently getting the right of 5 units per hour. Unable to get IV access and patient. She was given a central line appreciate surgeon for assistance. Patient had received 2 L of normal saline in the ER. I have given her a total of 3 L half-normal saline and will reevaluate her BMP at that time for more IV fluids. Patient's heart rate remains tachy at 120- 130. Hemoglobin A1c on admission was 8.0. Initial glucose was 660 anion gap was 36 potassium sodium is 136.5 potassium is 5.6 she had a bicarb of 8.4, and the onset was 7, troponins were 0.012 BNP was 38 lipase 22.7 TSH is 0.11, she also had a negative . Patient had greater than 500 glucose in her urine positive ketones DK a has resolved patient states she is feeling much better today we will attempt to put patient on long-acting insulin and advance diet as tolerated we will give pre-meal insulin. Patient may transfer out of the unit and possibly be able to go home tomorrow. (4) Nausea & vomiting Qualifiers: Vomiting type: unspecified Vomiting Intractability: intractable Qualified Code(s): R11.2 - Nausea with vomiting, unspecified Is this a current diagnosis for this admission?: Yes Plan: Patient was given anti-medics and IV hydration for dehydration which probably made the nausea vomiting worse. (5) Tobacco abuse Is this a current diagnosis for this admission?: Yes Plan: We will could a nicotine patch on patient. Encourage smoking cessation watch patient's little more coherent (6) SIRS (systemic inflammatory response syndrome) Is this a current diagnosis for this admission?: Yes Plan: Sirs, patient meets surgical criteria is likely secondary from DKA with an elevated WBC continue to monitor
[2017-01-19] MEDS ORDERED: HYDROCODONE/ACETAMINOPHEN 5-325 MG TABLET PO PRN (17:33)
[2017-01-19 18:50] LABS: ANION GAP 8 (5-19); BLOOD UREA NITROGEN 3 mg/dL (7-20); CALCIUM 8.3 mg/dL (8.4-10.2); CARBON DIOXIDE 22 mmol/L (22-30); CHLORIDE 104 mmol/L (98-107); CREATININE RESULT 0.51 mg/dL (0.52-1.25); GLUCOSE 272 mg/dL (75-110); POTASSIUM 3.8 mmol/L (3.6-5.0); SODIUM 134.1 mmol/L (137-145)
[2017-01-19] MEDS: LORAZEPAM 0.5 MG TABLET PO PRN (22:28)
[2017-01-20] MEDS: METOCLOPRAMIDE HCL INJ/PF 10 MG/2 ML SDV IV SCH ×2 (01:11→05:18)
[2017-01-20] MEDS: HEPARIN SOD (PORCINE) 5,000 UNIT/ML 1 ML SYRINGE SUBCUT SCH (05:19)
[2017-01-20 05:40] LABS: ABSOLUTE EOSINOPHILS # (AUTO) 0.1 10^3/uL (0.0-0.6); ABSOLUTE LYMPHOCYTES (AUTO) 1.5 10^3/uL (0.5-4.7); ABSOLUTE MONOCYTES (AUTO) 0.3 10^3/uL (0.1-1.4); ABSOLUTE NEUT (AUTO) 1.5 10^3/uL (1.7-8.2); BASOPHILS % (AUTO) 0.6 % (0-2); EOSINOPHILS % (AUTO) 3.1 % (0-6); HEMATOCRIT 38.4 % (36.0-47.0); HEMOGLOBIN 13.6 g/dL (12.0-15.5); HGB HCT DIFFERENCE 2.4; LYMPHOCYTES % (AUTO) 43.6 % (13-45); MEAN CORPUSCULAR HEMOGLOBIN 32.4 pg (27.0-33.4); MEAN CORPUSCULAR HGB CONC 35.4 g/dL (32.0-36.0); MEAN CORPUSCULAR VOLUME 92 fl (80-97); MONOCYTES % (AUTO) 9.2 % (3-13); RED CELL DISTRIBUTION WIDTH 12.7 % (11.5-14.0); SEGMENTED NEUTROPHILS % (AUTO) 43.5 % (42-78); WHITE BLOOD COUNT 3.6 10^3/uL (4.0-10.5)
[2017-01-20 05:58] LABS: ANION GAP 9 (5-19); BLOOD UREA NITROGEN 3 mg/dL (7-20); CARBON DIOXIDE 28 mmol/L (22-30); CHLORIDE 105 mmol/L (98-107); CREATININE RESULT 0.46 mg/dL (0.52-1.25); GLUCOSE 89 mg/dL (75-110); MAGNESIUM 1.6 mg/dL (1.6-2.3); POTASSIUM 3.6 mmol/L (3.6-5.0); SODIUM 141.9 mmol/L (137-145)
[2017-01-20] MEDS: LORAZEPAM 0.5 MG TABLET PO PRN (07:58)
[2017-01-20] MEDS ORDERED: INSULIN LISPRO 100 UNIT/ML 3 ML VIAL SUBCUT SCH (08:00)
[2017-01-20 08:08] VITALS: BP 121/61
[2017-01-20] MEDS: ONDANSETRON HCL INJ/PF 4 MG/2 ML SDV IV PRN (08:42)
[2017-01-20] MEDS: INSULIN DETEMIR 100 UNIT/ML 3 ML PEN SUBCUT SCH (09:24)
[2017-01-20] MEDS: PANTOPRAZOLE SODIUM 40 MG VIAL IV SCH (09:26)
--- NOTE | 2017-01-20 13:25 | PDOC DISCHARGE SUMMARY ---
General - Admit/Disc Date/PCP Admission Date/Primary Care Provider: 01/18/17 09:10 Discharge Date: 01/20/17 - Discharge Diagnosis (1) DKA (diabetic ketoacidoses) Is this a current diagnosis for this admission?: Yes Summary: She was admitted to the ICU with DKA; initial glucose was 660, anion gap was 36 , sodium 136.5 with potassium of 5.6. Patient reports that she takes over-the- counter 70/30 twice daily. She does admit to having been overly stressed and busy for several days that may have contributed to her missing occasional doses of her insulin. She nausea and vomiting as well as generalized body aches, polydipsia, polyuria which prompted her to seek care at the emergency department. She was placed on an insulin drip and labs were monitored per protocol. Her anion gap closed quickly and she was transitioned to subcutaneous Levemir with sliding scale Humalog coverage. Patient reports that she is slightly nauseated this morning, however has tolerated her meals without further episodes of emesis. The polydipsia and polyuria have resolved. She is concerned about her discharge prescriptions as she has no insurance and does not believe that she can afford Levemir or Humalog. She requests to resume her 70/30; stating that she recognizes that non-compliance was the precipitating factor. (2) Hyperglycemia due to type 1 diabetes mellitus Is this a current diagnosis for this admission?: Yes Summary: A1c 8.0%: She is likely noncompliant or subtherapeutic with her 70/30 twice daily dosing. She did meet with the registered dietitian to discuss her diabetes. We discussed the importance of establishing with [facility] and or a primary care provider in the area. I recommended that she call clinics to locate one that was accepting new patients and informed her that many clinics to accept uninsured patients on either a flat rate or sliding scale basis the patient is uninsured and will be unable to afford Levemir and Humalog she is discharged to home on her previous medication ; she is advised to resume her previous dose of 60 units twice daily and to increase by two units every 3 days until her fasting bgl is between 80-120. She is encouraged to check her blood sugar more frequently to assist with dietary habit changes and to monitor for hyper/hypoglycemia. (3) Nausea & vomiting Is this a current diagnosis for this admission?: Yes Summary: Improved. She has had no further episodes of emesis; she does have a slight sensation of nausea this morning and so will be discharged home with a short prescription for promethazine. (4) SIRS (systemic inflammatory response syndrome) Is this a current diagnosis for this admission?: Yes Summary: Secondary to DKA. [place] ptosis has resolved and the patient has remained afebrile throughout. No signs of active infection. (5) Tobacco abuse Is this a current diagnosis for this admission?: Yes Summary: Patient is recommended to reduce as able and to stop using tobacco products. - Additional Information Discharge Diet: Diabetic Discharge Activity: Activity As Tolerated Home Medications: Insulin NPH Hum/Reg Insulin Hm [Humulin 70-30 Vial] 60 unit SQ Q12 #4 vial 01/20 Promethazine HCl 12.5 mg PO Q8HP PRN #12 tablet 01/20/17 Promethazine HCl [Phenergan] 25 mg RC BID PRN #2 supp.rect 01/20/17 History of Present Illness History of Present Illness: Per H&P by Valentin Ta: CAMMIE ROBLES is a 41 year old female independent diabetic states she does not have any health insurance and get her insulin over- the-counter she takes 70/30 twice a day. Patient has a long history of insulin- dependent diabetes type 2 manages a type I. She came to the ER with nausea vomiting abdominal pain she was found to have DKA. She denies having a medical doctor. Patient states she takes 70/30 insulin twice a day but she did not take it last night or more today, she has been throwing up and not eating. She has had multiple admissions for the same problem. Patient's been nausea vomiting for past 2 days. Denies any family members with stomach virus or sick contacts. Patient denies seizures, chest pain. She has some shortness of breath, increased urination or thirst decreased appetite. Patient did state she took a Roxicodone prior to coming in because she felt so bad. In the ER Patient was found to have a glucose of 660, potassium was 5.6, pH 7.10 bicarb was 6, anion gap 36, coags were normal. She was started on insulin drip at 40 U /h and we were contacted to admit the patient under hospitalist service. Patient was transferred to ICU for further management care. Physical Exam Vital Signs: Temp Pulse Resp BP Pulse Ox 98.1 F 107 H 14 121/61 97 01/20/17 08:53 01/20/17 08:53 01/20/17 08:53 01/20/17 08:53 01/20/17 08:53 Intake & Output 01/19/17 01/20/17 01/21/17 06:59 06:59 06:59 Intake Total 5478 2400 Output Total 5470 4875 215 Balance 8 -5 -215 Weight 91.8 kg 91.3 kg General appearance: PRESENT: no acute distress, well-developed, well-nourished Head exam: PRESENT: atraumatic, normocephalic Eye exam: PRESENT: conjunctiva pink, EOMI, PERRLA. ABSENT: scleral icterus Ear exam: PRESENT: normal external ear exam Mouth exam: PRESENT: moist, tongue midline Neck exam: ABSENT: carotid bruit, JVD, lymphadenopathy, thyromegaly Respiratory exam: PRESENT: clear to auscultation purvi, symmetrical, unlabored. ABSENT: rales, rhonchi, tachypnea, wheezes Cardiovascular exam: PRESENT: RRR, +S1, +S2. ABSENT: diastolic murmur, rubs, systolic murmur Pulses: PRESENT: normal dorsalis pedis pul Vascular exam: PRESENT: normal capillary refill GI/Abdominal exam: PRESENT: normal bowel sounds, soft. ABSENT: distended, guarding, mass, organolmegaly, rebound, tenderness Rectal exam: PRESENT: deferred Extremities exam: PRESENT: full ROM. ABSENT: calf tenderness, clubbing, pedal edema Neurological exam: PRESENT: alert, awake, oriented to person, oriented to place , oriented to time, oriented to situation, CN II-XII grossly intact. ABSENT: motor sensory deficit Psychiatric exam: PRESENT: appropriate affect, normal mood. ABSENT: homicidal ideation, suicidal ideation Skin exam: PRESENT: dry, intact, warm. ABSENT: cyanosis, rash Results Laboratory Results: 01/20/17 05:20 01/20/17 05:20 01/19/17 01/20/17 01/20/17 18:00 05:20 05:20 WBC 3.6 L RBC 4.20 Hgb 13.6 Hct 38.4 MCV 92 MCH 32.4 MCHC 35.4 RDW 12.7 Plt Count 196 Seg Neutrophils % 43.5 Lymphocytes % 43.6 Monocytes % 9.2 Eosinophils % 3.1 Basophils % 0.6 Absolute Neutrophils 1.5 L Absolute Lymphocytes 1.5 Absolute Monocytes 0.3 Absolute Eosinophils 0.1 Absolute Basophils 0.0 Sodium 134.1 L 141.9 Potassium 3.8 3.6 Chloride 104 105 Carbon Dioxide 22 28 Anion Gap 8 9 BUN 3 L 3 L Creatinine 0.51 L 0.46 L Est GFR ( Amer) > 60 > 60 Est GFR (Non-Af Amer) > 60 > 60 Glucose 272 H 89 Calcium 8.3 L 9.0 Magnesium 1.6 01/18/17 10:28 Clean Catch Midstream Urine Culture - Final NO GROWTH 2 DAYS 01/18/17 11:00 Nasophary ([facility] Only) MRSA Surveillance Culture - Final NO MRSA RECOVERED 01/18/17 01/19/17 15:45 02:10 Troponin I < 0.012 < 0.012 Impressions: Chest X-Ray 01/18/17 07:31 IMPRESSION: NO ACUTE RADIOGRAPHIC FINDING IN THE CHEST. Qualifiers PATEINT BEING DISCHARGED WITH ANY OF THE FOLLOWING DIAGNOSIS?: No
== END 2017-01-20 10:09 | disposition home or self-care (01) | DRG 638 ==
LOC: ER 06:38 → UNDOADMIN 08:21 → EH 08:21 → ICU 10:42
PROVIDERS: ADMIT Pediatrics; ATTEND Pediatrics
PROC: 02HV33Z Insertion of Infusion Device into Superior Vena Cava, Percutaneous Approach (ICD-10-PCS; principal; 2017-01-18)
DX: E10.10 Type 1 diabetes mellitus with ketoacidosis without coma (principal); R65.10 Systemic inflammatory response syndrome (SIRS) of non-infectious origin without acute organ dysfunction; Z79.4 Long term (current) use of insulin; I87.2 Venous insufficiency (chronic) (peripheral); M79.7 Fibromyalgia; F17.200 Nicotine dependence, unspecified, uncomplicated; E66.9 Obesity, unspecified; Z68.31 Body mass index [BMI] 31.0-31.9, adult; Z83.3 Family history of diabetes mellitus; Z82.5 Family history of asthma and other chronic lower respiratory diseases; Z59.7 Insufficient social insurance and welfare support; Z91.19 Patient's noncompliance with other medical treatment and regimen
CPT/HCPCS: 36415; 71010; 80048; 80053; 80307; 81001; 82803; 82962; 83036; 83690; 83735; 83880; 84100; 84443; 84484; 84703; 85025; 85610; 85730; 87040; 87086; 90686; 96361; 96374; 99285; J1644; J1815; J2060; J2270; J2405; J2550; J2765; J3475; J3480; J7030; S0028; S0164